=== PATIENT | male | born 1945 | race Caucasian/White ===

== ENCOUNTER 2017-02-07 22:47 | Emergency (ER) | payer MEDICARE, OTHER ==
[~2017-02-07 22:47] MED LIST: AMLO5TAB22 PO; ASPI81TA82 PO; CYCL-36 PO; DICL50 PO; LOSA100T PO; METO25 PO; OXYC15TA PO; PRED10PA PO
[2017-02-07 22:49] VITALS: BP 193/98; PULSE 82; RESP 16; TEMP 98; O2SAT 99
[2017-02-08] MEDS ORDERED: DIAZEPAM 5 MG TAB PO ONE (01:30)
[2017-02-08] MEDS ORDERED: KETOROLAC TROMETHAMINE 60 MG/2 ML (IM) VIAL IM ONE (01:30)
--- NOTE | 2017-02-08 02:10 | PD ---
HPI Chief Complaint: Pain: Acute or Chronic Time Seen by Provider: 00:24 Travel History International Travel<30 days: No Contact w/Intl Traveler<30days: No Traveled to known affect area: No History of Present Illness HPI Patient has Parkinson's disease and a resting tremor which is stronger in his right arm and left arm. He's had no change in his medications. Patient says that his neck is been hurting for last few days and the arm tremor began after neck pain. Patient denies trauma. The pain in the neck is a dull aching pain does not radiate. The arm is just an increased tremor. He took Aleve did not help the pain. In the ER his pain and tremor continues > For this his pain and resting tremor he did not see another doctor for this complaint. PFSH Past Medical History Hx Anticoagulant Therapy: Yes Arthritis: Yes Heart Rhythm Problems: No Cardiac Catheterization: No Cardiovascular Problems: Yes (htn) High Cholesterol: No Congestive Heart Failure: No Diabetes: No Diminished Hearing: Yes (HEARING AIDS) Gastrointestinal Disorders: Yes GERD: Yes Hepatitis: No Hiatal Hernia: Yes Hypertension: Yes Medical other: Yes (NOSE BLEEDS) Musculoskeletal: Yes Immunizations Current: No Thyroid Disease: No PNEUMOCCOCAL Vaccine (Year): 1 ?: Not Past Surgical History Abdominal Surgery: Yes AICD: No Appendectomy: Yes Coronary Artery Bypass Graft: No Joint Replacement: Yes (LEFT KNEE) Pacemaker: No Other Surgery: Yes (LT KNEE REPLACEMENT, DEVIATED SEPTUM) Social History Alcohol Use: No Tobacco Use: No Substance Use: No Allergies-Medications (Allergen,Severity, Reaction): Coded Allergies: codeine (Unverified Allergy, Severe, HALLUCINATIONS, 02/08/17) zolpidem (Unverified Adverse Reaction, Mild, sleep walking, 02/08/17) Reported Meds & Prescriptions Reported Meds & Active Scripts Active Cozaar (Losartan Potassium) 50 Mg Tab 50 Mg PO DAILY Reported Aspir-81 (Aspirin) 81 Mg Tabdr 81 Mg PO DAILY Carbidopa-Levodopa 25-100 Mg Tab 2 Tab PO Q4HR Physical Exam Narrative GENERAL: resting right arm tremor noticeable from walking in the room non toxic in no distress SKIN: Warm and dry. HEAD: Atraumatic. Normocephalic. EYES: Pupils equal and round. No scleral icterus. No injection or drainage. ENT: No nasal bleeding or discharge. Mucous membranes pink and moist. NECK: Trachea midline NECK posterior trapezius muscle to scalenes area has pain on palpation of his muscles CARDIOVASCULAR: Regular rate and rhythm. RESPIRATORY: No accessory muscle use. Clear to auscultation. Breath sounds equal bilaterally. GASTROINTESTINAL: Abdomen soft, non-tender, nondistended. Hepatic and splenic margins not palpable. MUSCULOSKELETAL: Extremities right arm has tremor > than Left ...without clubbing, cyanosis, or edema. No obvious deformities. NEUROLOGICAL: Awake and alert. No obvious cranial nerve deficits. Motor TREMOR R>L arm . Five out of 5 muscle strength in the arms and legs. Normal speech. PSYCHIATRIC: Appropriate mood and affect; insight and judgment normal. Data Data Last Documented VS Vital Signs Date Time Temp Pulse Resp B/P (MAP) Pulse Ox O2 Delivery O2 Flow Rate FiO2 02/08/17 02:29 02/08/17 02:29 72 17 96 Room Air 02/07/17 22:49 98.0 Orders Orders Diazepam (Valium) (02/08/17 01:30) Ketorolac Inj (Toradol Inj) (02/08/17 01:30) Ed Discharge Order (02/08/17 02:16) Ed Discharge Order (02/08/17 02:16) [facility] Medical Decision Making Medical Screen Exam Complete: Yes Emergency Medical Condition: Yes Differential Diagnosis Muscle spasms pinching his nerves of his neck causing increased of his resting tremor of Parkinson's. Versus worsening of his central dopaminergic problem of Parkinson's Narrative Course Valium and IM Toradol patient feels much better is ready for discharge instructed to follow-up in the morning with his neurologist and his primary care doctor Diagnosis Primary Impression: Muscle spasms of neck Condition: Sergio Stern MD Feb 08, 2017 02:10
[2017-02-08] MEDS ORDERED: DIAZ5 PO (02:16)
[2017-02-08 02:29] VITALS: BP 169/72; PULSE 72; RESP 17; O2SAT 96
[2017-02-08] MEDS ORDERED: CARB25TA9 PO (10:03)
[2017-02-08] MEDS ORDERED: LOSA100T PO (10:03)
[2017-02-08] MEDS ORDERED: ASPI81TA81 PO (10:03)
[2017-02-09] MEDS ORDERED: COZA50TA PO (13:23)
== END 2017-02-08 02:30 | disposition home or self-care (01) ==
LOC: NEPC 22:47
DX: M62.838 Other muscle spasm (principal); R25.1 Tremor, unspecified; I10 Essential (primary) hypertension; Z79.01 Long term (current) use of anticoagulants
CPT/HCPCS: 96372; 99284; J1885

== ENCOUNTER 2017-02-08 09:47 | Observation (INO) | payer OTHER ==
[2017-02-08] VITALS (11 sets, daily range): BP systolic 133–177; BP diastolic 72–96; PULSE 72–97; RESP 16–18; TEMP 97.5–98.2; O2SAT 96–100
[~2017-02-08] VITALS: Ht 193 cm; Wt 98.0 kg
[~2017-02-08 09:47] MED LIST changes: +DIAZ5 PO
[2017-02-08] MEDS ORDERED: CARB25TA9 PO (10:03)
[2017-02-08] MEDS ORDERED: LOSA100T PO (10:03)
[2017-02-08] MEDS ORDERED: ASPI81TA81 PO (10:03)
--- NOTE | 2017-02-08 10:12 | PD ---
HPI Chief Complaint: Neuro Symptoms/ Deficits Time Seen by Provider: 09:53 Travel History International Travel<30 days: No Contact w/Intl Traveler<30days: No Traveled to known affect area: No History of Present Illness HPI 72-year-old male was brought in by his for altered mental status. Patient was seen in emergency room last night for neck pain. Patient was given IM injection Toradol and Valium 5 mg by mouth. Patient was discharged earlier this morning. Patient went to breakfast with his . Patient was sitting down at a table. Patient's states that patient's eyes rolled back and patient became unresponsive for about 10 minutes. Patient seemed to be more confused when he woke up. Patient complains of headache since this morning. Patient states that headache aching headache on the right side of the head. Patient denies any visual change. Patient denies any neck pain now. Patient denies any chest pain or shortness of breath. Patient denies abdominal pain. Patient denies any focal weakness or numbness of extremity. Patient denies any history of TIA or CVA. Patient denies any history of seizure. Patient has history of hypertension and Parkinson disease. Patient's on losartan and carbidopa/levodopa. Patient states that he take aspirin daily. PFSH Past Medical History Hx Anticoagulant Therapy: Yes Arthritis: Yes Heart Rhythm Problems: No Cardiac Catheterization: No Cardiovascular Problems: Yes (HTN) High Cholesterol: No Congestive Heart Failure: No Diabetes: No Diminished Hearing: Yes (HEARING AIDS) Gastrointestinal Disorders: Yes GERD: Yes Hepatitis: No Hiatal Hernia: Yes Hypertension: Yes Medical other: Yes (NOSE BLEEDS) Musculoskeletal: Yes Parkinson's Disease: Yes Immunizations Current: No Thyroid Disease: No PNEUMOCCOCAL Vaccine (Year): 1 Past Surgical History Abdominal Surgery: Yes AICD: No Appendectomy: Yes Coronary Artery Bypass Graft: No Joint Replacement: Yes (LEFT KNEE) Pacemaker: No Other Surgery: Yes (LT KNEE REPLACEMENT, DEVIATED SEPTUM) Social History Alcohol Use: No Tobacco Use: No Substance Use: No Allergies-Medications (Allergen,Severity, Reaction): Coded Allergies: codeine (Unverified Allergy, Severe, HALLUCINATIONS, 02/08/17) zolpidem (Unverified Adverse Reaction, Mild, sleep walking, 02/08/17) Reported Meds & Prescriptions Reported Meds & Active Scripts Active Reported Losartan (Losartan Potassium) 100 Mg Tab 100 Mg PO DAILY Aspir-81 (Aspirin) 81 Mg Tabdr 81 Mg PO DAILY Carbidopa-Levodopa 25-100 Mg Tab 2 Tab PO Q4HR Review of Systems General / Constitutional: No: Fever Eyes: No: Visual changes HENT: Positive: Headaches Cardiovascular: No: Chest Pain or Discomfort Respiratory: No: Shortness of Breath Gastrointestinal: No: Abdominal Pain Genitourinary: No: Dysuria Musculoskeletal: No: Pain Skin: No Rash Neurologic: No: Weakness Psychiatric: No: Depression Endocrine: No: Polydipsia Hematologic/Lymphatic: No: Easy Bruising Physical Exam Narrative GENERAL: Well-nourished, well-developed patient. SKIN: Focused skin assessment warm/dry. HEAD: Normocephalic. EYES: No scleral icterus. No injection or drainage. Pupils 2.5 mm equal reactive. NECK: Supple, trachea midline. No JVD or lymphadenopathy. No meningismus CARDIOVASCULAR: Regular rate and rhythm without murmurs, gallops, or rubs. RESPIRATORY: Breath sounds equal bilaterally. No accessory muscle use. GASTROINTESTINAL: Abdomen soft, non-tender, nondistended. MUSCULOSKELETAL: No cyanosis, or edema. BACK: Nontender without obvious deformity. No CVA tenderness. Neurologic exam: Patient's lethargic however answer questions appropriately. Patient moves all extremity well. No obvious focal neurological deficit. Data Data Last Documented VS Vital Signs Date Time Temp Pulse Resp B/P (MAP) Pulse Ox O2 Delivery O2 Flow Rate FiO2 02/08/17 13:38 72 18 166/84 (111) 100 Room Air 02/08/17 10:03 97.8 Orders Orders Electrocardiogram (02/08/17 10:04) Complete Blood Count With Diff (02/08/17 10:04) Comprehensive Metabolic Panel (02/08/17 10:04) Creatine Kinase (Cpk) (02/08/17 10:04) Troponin I (02/08/17 10:04) Prothrombin Time / Inr (Pt) (02/08/17 10:04) Act Partial Throm Time (Ptt) (02/08/17 10:04) Urinalysis - C+S If Indicated (02/08/17 10:04) Thyroid Stimulating Hormone (02/08/17 10:04) Chest, Single Ap (02/08/17 10:04) Ct Brain W/O Iv Contrast(Rout) (02/08/17 10:04) Iv Access Insert/Monitor (02/08/17 10:04) Ecg Monitoring (02/08/17 10:04) Oximetry (02/08/17 10:04) Ct Cerv Spine W/O Contrast (02/08/17 10:06) Mri Brain W/O Contrast (02/08/17 14:03) Mra Brain W/O Contrast (Cow) (02/08/17 14:03) Mra Carotids W Contrast (02/08/17 14:03) Labs Laboratory Tests Test 02/08/17 10:09 White Blood Count 9.7 TH/MM3 Red Blood Count 4.28 MIL/MM3 Hemoglobin 13.3 GM/DL Hematocrit 40.1 % Mean Corpuscular Volume 93.9 FL Mean Corpuscular Hemoglobin 31.1 PG Mean Corpuscular Hemoglobin Concent 33.1 % Red Cell Distribution Width 13.6 % Platelet Count 174 TH/MM3 Mean Platelet Volume 8.9 FL Neutrophils (%) (Auto) 76.6 % Lymphocytes (%) (Auto) 13.2 % Monocytes (%) (Auto) 8.6 % Eosinophils (%) (Auto) 1.1 % Basophils (%) (Auto) 0.5 % Neutrophils # (Auto) 7.4 TH/MM3 Lymphocytes # (Auto) 1.3 TH/MM3 Monocytes # (Auto) 0.8 TH/MM3 Eosinophils # (Auto) 0.1 TH/MM3 Basophils # (Auto) 0.1 TH/MM3 CBC Comment DIFF FINAL Differential Comment Prothrombin Time 10.3 SEC Prothromb Time International Ratio 1.0 RATIO Activated Partial Thromboplast Time 22.9 SEC Blood Urea Nitrogen 34 MG/DL Creatinine 1.27 MG/DL Random Glucose 119 MG/DL Total Protein 7.5 GM/DL Albumin 3.9 GM/DL Calcium Level 9.1 MG/DL Alkaline Phosphatase 97 U/L Aspartate Amino Transf (AST/SGOT) 15 U/L Alanine Aminotransferase (ALT/SGPT) 9 U/L Total Bilirubin 0.6 MG/DL Sodium Level 136 MEQ/L Potassium Level 3.8 MEQ/L Chloride Level 103 MEQ/L Carbon Dioxide Level 26.1 MEQ/L Anion Gap 7 MEQ/L Estimat Glomerular Filtration Rate 56 ML/MIN Total Creatine Kinase 70 U/L Troponin I LESS THAN 0.02 NG/ML Thyroid Stimulating Hormone 3rd Gen 5.320 uIU/ML MDM Medical Decision Making Medical Screen Exam Complete: Yes Emergency Medical Condition: Yes Interpretation(s) Last Impressions Cervical Spine CT 02/08/17 1006 Signed Impressions: Service Date/Time: Wednesday, February 08, 2017 10:38 - CONCLUSION: 1. No fracture or dislocation. 2. Diffuse severe degenerative changes as detailed above. 3. Carotid artery atherosclerotic calcifications. Orlin Crow Jr., MD Head CT 02/08/17 1004 Signed Impressions: Service Date/Time: Wednesday, February 08, 2017 10:38 - CONCLUSION: Age-indeterminate bilateral lacunar infarcts. Mitchell Bryson MD Chest X-Ray 02/08/17 1004 Signed Impressions: Service Date/Time: Wednesday, February 08, 2017 10:22 - CONCLUSION: No acute disease. Clint Rodriguez MD FACR 1356 PM. CBC within normal limit. CMP with BUN of 34. Cardiac enzymes are normal. TSH 5.32. Differential Diagnosis Differential diagnosis including side effect to medication, TIA, CVA, seizure, electrolyte abnormality, dehydration, arrhythmia. Narrative Course 72-year-old male with altered mental status. Patient was seen in emergency room earlier this morning was given Valium and Toradol IM injection. Normal saline solution 100 cc an hour. O2 2 L cannula. Head of bed 30. Diagnosis Primary Impression: Syncope Qualified Codes: R55 - Syncope and collapse Connor Guy MD Feb 08, 2017 10:12
[2017-02-08 10:24] LABS: AUTOMATED NEUTROPHIL # 7.4 TH/MM3 (1.8-7.7); BASOPHIL # 0.1 TH/MM3 (0-0.2); BASOPHIL % 0.5 % (0.0-2.0); EOSINOPHIL # 0.1 TH/MM3 (0-0.4); EOSINOPHIL % 1.1 % (0.0-4.0); HEMATOCRIT 40.1 % (39.0-51.0); HEMO FLAGS DIFF FINAL; LYMPH % 13.2 % (9.0-44.0); LYMPHOCYTE # 1.3 TH/MM3 (1.0-4.8); MEAN CELL VOLUME 93.9 FL (80.0-100.0); MEAN CORPUSCULAR HEMOGLOBIN 31.1 PG (27.0-34.0); MEAN CORPUSCULAR HGB CONC 33.1 % (32.0-36.0); MONO % 8.6 % (0.0-8.0); NEUT % 76.6 % (16.0-70.0); PLATELET COUNT 174 TH/MM3 (150-450); RED BLOOD COUNT 4.28 MIL/MM3 (4.50-5.90); RED CELL DISTRIBUTION WIDTH 13.6 % (11.6-17.2); WHITE BLOOD COUNT 9.7 TH/MM3 (4.0-11.0)
--- NOTE | 2017-02-08 10:35 | RADRPT ---
EXAM DATE/TIME: 02/08/2017 10:22 [facility] COMPARISON: CHEST SINGLE AP, December 11, 2014, 14:22. INDICATIONS : Patient found unresponsive this morning. Now confusion with shortness of breath. MEDICAL HISTORY : Parkinson SURGICAL HISTORY : None. ENCOUNTER: Initial ACUITY: 1 day PAIN SCORE: 0/10 LOCATION: Bilateral chest FINDINGS: A single view of the chest demonstrates the lungs to be symmetrically aerated without evidence of mas s, infiltrate or effusion. The cardiomediastinal contours are unremarkable. Osseous structures are intact. CONCLUSION: No acute disease. Clint Rodriguez MD FACR on February 08, 2017 at 10:32 Board Certified Radiologist. This report was verified electronically.
[2017-02-08 10:39] LABS: APTT (PATIENT) 22.9 SEC (24.3-30.1); PROTHROMBIN TIME - PATIENT 10.3 SEC (9.8-11.6)
[2017-02-08 10:44] LABS: ANION GAP 7 MEQ/L (5-15); AST (GOT) 15 U/L (15-37); BICARBONATE 26.1 MEQ/L (21.0-32.0); BLOOD UREA NITROGEN 34 MG/DL (7-18); CHLORIDE 103 MEQ/L (98-107); GLOMERULAR FILTRATION RATE 56 ML/MIN (>89); POTASSIUM 3.8 MEQ/L (3.5-5.1); SODIUM (NA) 136 MEQ/L (136-145)
[2017-02-08 10:54] LABS: ALKALINE PHOSPHATASE 97 U/L (45-117); ALT (GPT) 9 U/L (12-78); TOTAL BILIRUBIN ADULT 0.6 MG/DL (0.2-1.0)
[2017-02-08 10:56] LABS: CREATINE KINASE 70 U/L (39-308)
--- NOTE | 2017-02-08 11:09 | RADRPT ---
EXAM DATE/TIME: 02/08/2017 10:38 [facility] COMPARISON: No previous studies available for comparison. INDICATIONS : Syncope. Altered mental status. RADIATION DOSE: 69.24 CTDIvol (mGy) MEDICAL HISTORY : Parkinson's. Cardiovascular disease Hypertension. SURGICAL HISTORY : Appendectomy. ENCOUNTER: Initial ACUITY: 1 day PAIN SCALE: 0/10 LOCATION: cranial TECHNIQUE: Multiple contiguous axial images were obtained of the head. Using automated exposure control and adj ustment of the mA and/or kV according to patient size, radiation dose was kept as low as reasonably a chievable to obtain optimal diagnostic quality images. DICOM format image data is available electro nically for review and comparison. FINDINGS: There are small areas of hypodensity involving the left internal capsule and the right thalamus which are likely lacunar infarcts of undetermined age. There is no evidence of intracranial mass or hemorr ruth. Ventricles are symmetric and normal. No abnormal extra-axial fluid accumulation is identified. The extracranial structures are benign and intact. CONCLUSION: Age-indeterminate bilateral lacunar infarcts. Mitchell Bryson MD on February 08, 2017 at 11:00 Board Certified Radiologist. This report was verified electronically.
--- NOTE | 2017-02-08 11:15 | RADRPT ---
EXAM DATE/TIME: 02/08/2017 10:38 [facility] COMPARISON: No previous studies available for comparison. INDICATIONS : Syncope, fall. Neck pain. RADIATION DOSE: 36.56 CTDIvol (mGy) MEDICAL HISTORY : Parkinson's. Cardiovascular disease Hypertension. SURGICAL HISTORY : None. ENCOUNTER: Initial ACUITY: 1 day PAIN SCALE: 0/10 LOCATION: neck TECHNIQUE: Volumetric scanning of the cervical spine was performed. Multiplanar reconstructions in the sagittal, coronal and oblique axial planes were performed. Using automated exposure control and adjustment o f the mA and/or kV according to patient size, radiation dose was kept as low as reasonably achievable to obtain optimal diagnostic quality images. DICOM format image data is available electronically f or review and comparison. FINDINGS: VERTEBRAE: Normal vertebral body height. ALIGNMENT: No evidence of subluxation. Calcified plaque involving the carotid arteries. C2-C3: There is a mild broad-based bulge. No abutment of the cord or central canal stenosis. Prominent bony uncovertebral hypertrophy on the left generating severe left neural foraminal narrowing and mild narr owing of the left lateral recess. Right neural foramen and lateral recess are patent. C3-C4: There is a broad-based disc osteophyte complex without abutment of the cord or central canal stenosis . Prominent bony uncovertebral hypertrophy more pronounced on the right with moderate right and mild left neural foraminal narrowing. Mild narrowing of the lateral recesses bilaterally. C4-C5: There is a central disc protrusion abuts the cord just to the right of midline. Prominent bony uncove rtebral hypertrophy on the right generates effacement of the right lateral recess and severe narrowin g of the right neural foramen. Left neural foramen and lateral recess are patent. C5-C6: There is a broad-based disc osteophyte complex abuts the ventral portion of the cord. Prominent bony uncovertebral hypertrophy bilaterally. Severe narrowing of the neural foramina bilaterally. Narrowing of lateral recesses bilaterally. C6-C7: A broad-based disc osteophyte complex abuts the cord. Prominent bony uncovertebral hypertrophy. Sever e narrowing the left neural foramen. Right is patent. Narrowing of the left lateral recess and to a l victor hugo irregularity is. C7-T1: The bony spinal canal is normal in size. No evidence of disc bulge or herniation. The neural forami na are bilaterally patent. CONCLUSION: 1. No fracture or dislocation. 2. Diffuse severe degenerative changes as detailed above. 3. Carotid artery atherosclerotic calcifications. Orlin Crow Jr., MD on February 08, 2017 at 11:04 Board Certified Radiologist. This report was verified electronically.
--- NOTE | 2017-02-08 14:52 | HHI.HP ---
[facility] Service [facility] Primary Care Physician Bandar Jolly MD Admission Diagnosis Diagnoses: Chief Complaint: Syncope Travel History International Travel<30 Days: No Contact w/Intl Traveler <30 Da: No Traveled to Known Affected Are: No History of Present Illness 72-year-old male was brought in by his for altered mental status. Patient was seen in emergency room last night for neck pain. Patient was given IM injection Toradol and Valium 5 mg by mouth. Patient was discharged earlier this morning. Patient went to breakfast with his . Patient was sitting down at a table. Patient's states that patient's eyes rolled back and patient became unresponsive for about 10 minutes. Patient seemed to be more confused when he woke up. Patient complains of headache since this morning. Patient states that headache aching headache on the right side of the head. Patient denies any visual change. Patient denies any neck pain now. Patient denies any chest pain or shortness of breath. Patient denies abdominal pain. Patient denies any focal weakness or numbness of extremity. Patient denies any history of TIA or CVA. Patient denies any history of seizure. Patient has history of hypertension and Parkinson disease. Patient's on losartan and carbidopa/levodopa. Patient states that he take aspirin daily. Seen in ER in the presence of lot technician performing his EEG. Neurology specialist Doctor Bladimir Gan for management. Review of Systems Constitutional: DENIES: Fever, Chills, Change in appetite Endocrine: DENIES: Heat/cold intolerance Eyes: DENIES: Blurred vision, Eye pain Except as stated in HPI: all other systems reviewed are Neg Past Family Social History Past Medical History OA Hypertension GERD Hiatal Hernia Parkinson's disease Past Surgical History Appendectomy Left knee replacement Reported Medications Reported Meds & Active Scripts Active Reported Losartan (Losartan Potassium) 100 Mg Tab 100 Mg PO DAILY Aspir-81 (Aspirin) 81 Mg Tabdr 81 Mg PO DAILY Carbidopa-Levodopa 25-100 Mg Tab 2 Tab PO Q4HR Allergies: Coded Allergies: codeine (Unverified Allergy, Severe, HALLUCINATIONS, 02/08/17) zolpidem (Unverified Adverse Reaction, Mild, sleep walking, 02/08/17) Active Ordered Medications Current Medications Medications (Trade) Dose Ordered Sig/Lynnette Route Start Time Stop Time Status Last Admin Sodium Chloride 1,000 ml @ 100 mls/hr Q10H IV 02/08/17 15:29 02/08/17 15:50 (NS Flush) 2 ml UNSCH PRN IV FLUSH 02/08/17 15:30 (NS Flush) 2 ml BID IV FLUSH 02/08/17 21:00 (Tylenol) 650 mg Q4H PRN PO 02/08/17 15:30 (Zofran Inj) 4 mg Q6H PRN IVP 02/08/17 15:30 (Lovenox Inj) 40 mg Q24H SQ 02/08/17 17:00 02/08/17 16:47 (Narcan Inj) 0.4 mg UNSCH PRN IV PUSH 02/08/17 15:30 (Rand-Colace) 1 tab BID PO 02/08/17 21:00 (Milk Of Magnesia Liq) 30 ml Q12H PRN PO 02/08/17 15:30 (Senokot) 17.2 mg Q12H PRN PO 02/08/17 15:30 (Dulcolax Supp) 10 mg DAILY PRN RECTAL 02/08/17 15:30 (Lactulose Liq) 30 ml DAILY PRN PO 02/08/17 15:30 Family History Father with DM Social History Lives with his , Denies any toxic habit Physical Exam Vital Signs Vital Signs Date Time Temp Pulse Resp B/P (MAP) Pulse Ox O2 Delivery O2 Flow Rate FiO2 02/08/17 13:38 72 18 166/84 (111) 100 Room Air 02/08/17 10:06 77 18 99 Room Air 02/08/17 10:03 97.8 74 18 170/96 (120) 99 Room Air 02/08/17 10:03 75 18 97 Room Air 02/08/17 09:56 97.8 79 18 170/96 (120) 97 02/08/17 09:48 97.6 78 16 172/92 (118) 97 Room Air Physical Exam GENERAL: Well-nourished, well-developed patient. SKIN: Focused skin assessment warm/dry. HEAD: Normocephalic. EYES: No scleral icterus. No injection or drainage. Pupils 2.5 mm equal reactive. NECK: Supple, trachea midline. No JVD or lymphadenopathy. No meningismus CARDIOVASCULAR: Regular rate and rhythm without murmurs, gallops, or rubs. RESPIRATORY: Breath sounds equal bilaterally. No accessory muscle use. GASTROINTESTINAL: Abdomen soft, non-tender, nondistended. MUSCULOSKELETAL: No cyanosis, or edema. BACK: Nontender without obvious deformity. No CVA tenderness. Neurologic exam: Patient's lethargic however answer questions appropriately. weakness on the right arm. Laboratory Laboratory Tests Test 02/08/17 10:09 White Blood Count 9.7 Red Blood Count 4.28 Hemoglobin 13.3 Hematocrit 40.1 Mean Corpuscular Volume 93.9 Mean Corpuscular Hemoglobin 31.1 Mean Corpuscular Hemoglobin Concent 33.1 Red Cell Distribution Width 13.6 Platelet Count 174 Mean Platelet Volume 8.9 Neutrophils (%) (Auto) 76.6 Lymphocytes (%) (Auto) 13.2 Monocytes (%) (Auto) 8.6 Eosinophils (%) (Auto) 1.1 Basophils (%) (Auto) 0.5 Neutrophils # (Auto) 7.4 Lymphocytes # (Auto) 1.3 Monocytes # (Auto) 0.8 Eosinophils # (Auto) 0.1 Basophils # (Auto) 0.1 CBC Comment DIFF FINAL Differential Comment Prothrombin Time 10.3 Prothromb Time International Ratio 1.0 Activated Partial Thromboplast Time 22.9 Blood Urea Nitrogen 34 Creatinine 1.27 Random Glucose 119 Total Protein 7.5 Albumin 3.9 Calcium Level 9.1 Alkaline Phosphatase 97 Aspartate Amino Transf (AST/SGOT) 15 Alanine Aminotransferase (ALT/SGPT) 9 Total Bilirubin 0.6 Sodium Level 136 Potassium Level 3.8 Chloride Level 103 Carbon Dioxide Level 26.1 Anion Gap 7 Estimat Glomerular Filtration Rate 56 Total Creatine Kinase 70 Troponin I LESS THAN 0.02 Thyroid Stimulating Hormone 3rd Gen 5.320 Result Diagram: 02/08/17 1009 02/08/17 1009 Imaging Last Impressions Cervical Spine CT 02/08/17 1006 Signed Impressions: Service Date/Time: Wednesday, February 08, 2017 10:38 - CONCLUSION: 1. No fracture or dislocation. 2. Diffuse severe degenerative changes as detailed above. 3. Carotid artery atherosclerotic calcifications. Orlin Crow Jr., MD Head CT 02/08/17 1004 Signed Impressions: Service Date/Time: Wednesday, February 08, 2017 10:38 - CONCLUSION: Age-indeterminate bilateral lacunar infarcts. Mitchell Bryson MD Chest X-Ray 02/08/17 1004 Signed Impressions: Service Date/Time: Wednesday, February 08, 2017 10:22 - CONCLUSION: No acute disease. Clint Rodriguez MD FACR Caprini VTE Risk Assessment Caprini VTE Risk Assessment: Mod/High Risk (score >= 2) Caprini Risk Assessment Model Point Value = 1 Point Value = 2 Point Value = 3 Point Value = 5 Age 41-60 Minor surgery BMI > 25 kg/m2 Swollen legs Varicose veins or History of unexplained or recurrent spontaneous Oral contraceptives or hormone replacement Sepsis (< 1 month) Serious lung disease, including pneumonia (< 1 month) Abnormal pulmonary function Acute myocardial infarction Congestive heart failure (< 1 month) History of inflammatory bowel disease Medical patient at bed rest Age 61-74 Arthroscopic surgery Major open surgery (> 45 min) Laparoscopic surgery (> 45 min) Malignancy Confined to bed (> 72 hours) Immobilizing plaster cast Central venous access Age >= 75 History of VTE Family history of VTE Factor V Leiden Prothrombin [id number] Lupus anticoagulant Anticardiolipin antibodies Elevated serum homocysteine Heparin-induced thrombocytopenia Other congenital or acquired thrombophilia Stroke (< 1 month) Elective arthroplasty Hip, pelvis, or leg fracture Acute spinal cord injury (< 1 month) Prophylaxis Regimen Total Risk Factor Score Risk Level Prophylaxis Regimen 0-1 Low Early ambulation 2 Moderate Order ONE of the following: *Sequential Compression Device (SCD) *Heparin 5000 units SQ BID 3-4 Higher Order ONE of the following medications: *Heparin 5000 units SQ TID *Enoxaparin/Lovenox 40 mg SQ daily (WT < 150 kg, CrCl > 30 mL/min) *Enoxaparin/Lovenox 30 mg SQ daily (WT < 150 kg, CrCl > 10-29 mL/min) *Enoxaparin/Lovenox 30 mg SQ BID (WT < 150 kg, CrCl > 30 mL/min) AND/OR *Sequential Compression Device (SCD) 5 or more Highest Order ONE of the following medications: *Heparin 5000 units SQ TID (Preferred with Epidurals) *Enoxaparin/Lovenox 40 mg SQ daily (WT < 150 kg, CrCl > 30 mL/min) *Enoxaparin/Lovenox 30 mg SQ daily (WT < 150 kg, CrCl > 10-29 mL/min) *Enoxaparin/Lovenox 30 mg SQ BID (WT < 150 kg, CrCl > 30 mL/min) AND *Sequential Compression Device (SCD) Assessment and Plan Assessment and Plan 1. Syncopal Episode the patient was discussed with ER specialist the patient was seen in Emergency room yesterday and given Valium and Toradol IM Injection after this the patient developed the episode that brought him to ER, he is been discussed with Neurology specialist doctor Bladimir Gan asked for MRI, MRA, EEG and follow hospitalized, also will continue management, for possible TIA/CVA continue Aspirin 325 mg, continue Cardiac monitoring, Echocardiogram, Cardiac Enzymes, complete laboratory, consult PT/OT/ST 2. OA by history 3. Hypertension continue off antihypertensives and follow 4. GERD on Famotidine 5. Parkinson's Disease to continue Home medicines. 6. Subclinical Hypothyroidism asked for Free T4 DVT prophylaxis with Lovenox. Code Status Full code Discussed Condition With Connor Guy MD, Guillermo MD Feb 08, 2017 14:52
[2017-02-08] MEDS ORDERED: ACETAMINOPHEN 325 MG TAB PO PRN (15:30)
[2017-02-08] MEDS ORDERED: SENNOSIDES 8.6 MG TAB PO PRN (15:30)
[2017-02-08] MEDS ORDERED: MAGNESIUM HYDROXIDE SUSP 30 ML CUP PO PRN (15:30)
[2017-02-08] MEDS ORDERED: ONDANSETRON HCL 4 MG/2 ML VIAL IVP PRN (15:30)
[2017-02-08] MEDS ORDERED: NALOXONE HCL 0.4 MG/ML AMP IV PUSH PRN (15:30)
[2017-02-08] MEDS ORDERED: SODIUM CHLORIDE 0.9% FLUSH 10 ML FLUSH IV FLUSH PRN (15:30)
[2017-02-08] MEDS ORDERED: BISACODYL 10 MG SUPP RECTAL PRN (15:30)
[2017-02-08] MEDS ORDERED: LACTULOSE SYRUP 20 GM/30 ML CUP PO PRN (15:30)
--- NOTE | 2017-02-08 15:46 | EKG ---
Date Performed: 02/08/2017 Time Performed: 10:00:25 PTAGE: 72 years EKG: Sinus rhythm WITH FREQUENT VENTRICULAR PREMATURE COMPLEXES ABNORMAL RHYTHM ECG Compared to PREVIOUS TRACING , patient is now having frequent PVCs. PREVIOUS TRACIN12/11/2014 20.0 1 DOCTOR: Irene Packer Interpretating Date/Time 02/08/2017 15:44:32
[2017-02-08] MEDS: SODIUM CHLOR 0.9% 1000 ML INJ 1,000 ML IV SCH (15:50)
[2017-02-08] MEDS: ENOXAPARIN SODIUM 40 MG/0.4 ML SYRINGE SQ SCH (16:47)
[2017-02-08 16:50] LABS: BLOOD, URINE NEG (NEG); COMMENT (UR) CULT NOT INDICATED; CULTURE IF INDICATED CULT NOT INDICATED; GLUCOSE,URINE NEG (NEG); HYALINE CAST, URINE 6 /lpf (RARE); KETONE, URINE TRACE mg/dL (NEG); MUCUS URINE FEW /lpf (OCC); NITRITE,URINE NEG (NEG); URINE COLOR YELLOW (YELLW/STRAW)
--- NOTE | 2017-02-08 17:40 | PD.CONS ---
History of Present Illness Service Neurology Consult Requested By medical Reason for Consult pd, weak Primary Care Physician Bandar Jolly MD History of Present Illness 72-year-old m admitted for neck pain, followed by syncopal type episode at home. came to er for neck pain, given toradol for pain, also given valium. improved. ct cspine no acute fx/lesion. came back after he got weak and ?eyes rolled back confused after. admits to feeling lightheaded at times when going from sitting to standing position. feels fine at present. no hx of tia/stroke/sz. dx'd with p.d. 9 months ago. takes sinemet 2 tabs qid. has a local neurologist. Review of Systems as above and admit hp Past Family Social History Past Medical History OA Hypertension GERD Hiatal Hernia Parkinson's disease Past Surgical History Appendectomy Left knee replacement Reported Medications Reported Meds & Active Scripts Active Reported Losartan (Losartan Potassium) 100 Mg Tab 100 Mg PO DAILY Aspir-81 (Aspirin) 81 Mg Tabdr 81 Mg PO DAILY Carbidopa-Levodopa 25-100 Mg Tab 2 Tab PO Q4HR Allergies: Coded Allergies: codeine (Unverified Allergy, Severe, HALLUCINATIONS, 02/08/17) zolpidem (Unverified Adverse Reaction, Mild, sleep walking, 02/08/17) Father with DM Social History Lives with his , no tob/illicit drug use Review of Systems All other ROS: ROS reviewed as documented in chart Past Family Social History Allergies: Coded Allergies: codeine (Unverified Allergy, Severe, HALLUCINATIONS, 02/08/17) zolpidem (Unverified Adverse Reaction, Mild, sleep walking, 02/08/17) Active Ordered Medications Current Medications Medications (Trade) Dose Ordered Sig/Lynnette Route Start Time Stop Time Status Last Admin Sodium Chloride 1,000 ml @ 100 mls/hr Q10H IV 02/08/17 15:29 02/08/17 15:50 (NS Flush) 2 ml UNSCH PRN IV FLUSH 02/08/17 15:30 (NS Flush) 2 ml BID IV FLUSH 02/08/17 21:00 (Tylenol) 650 mg Q4H PRN PO 02/08/17 15:30 (Zofran Inj) 4 mg Q6H PRN IVP 02/08/17 15:30 (Lovenox Inj) 40 mg Q24H SQ 02/08/17 17:00 02/08/17 16:47 (Narcan Inj) 0.4 mg UNSCH PRN IV PUSH 02/08/17 15:30 (Rand-Colace) 1 tab BID PO 02/08/17 21:00 (Milk Of Magnesia Liq) 30 ml Q12H PRN PO 02/08/17 15:30 (Senokot) 17.2 mg Q12H PRN PO 02/08/17 15:30 (Dulcolax Supp) 10 mg DAILY PRN RECTAL 02/08/17 15:30 (Lactulose Liq) 30 ml DAILY PRN PO 02/08/17 15:30 (Sinemet 25-100 Mg) 2 tab Q4HR PO 02/08/17 20:00 UNV Exam I&O / VS Vital Signs Date Time Temp Pulse Resp B/P (MAP) Pulse Ox O2 Delivery O2 Flow Rate FiO2 02/08/17 17:13 82 02/08/17 16:54 97.5 82 18 177/72 (107) 96 02/08/17 16:28 02/08/17 13:38 72 18 166/84 (111) 100 Room Air 02/08/17 10:06 77 18 99 Room Air 02/08/17 10:03 97.8 74 18 170/96 (120) 99 Room Air 02/08/17 10:03 75 18 97 Room Air 02/08/17 09:56 97.8 79 18 170/96 (120) 97 02/08/17 09:48 97.6 78 16 172/92 (118) 97 Room Air General: Alert and Oriented, No acute distress Eye: EOMI Respiratory: Non-labored respirations Cardiology: Normal rate Neurologic: Alert, Oriented, Normal sensory, CN II-XII intact, Gag reflex normal, Normal DTR's Psychiatric: Cooperative, Appropriate mood & affect, Normal judgement, Non- suicidal Exam Comments ox 3, pleasant, follows, no aphasia, eomi, face sym, facial hypomimia, mild dysphonic speech, neck mild rigidty, no confucianism tenderness, +rt ue resting tremor , mild ue rigidity, kirk to gravity, withdraws to tactile, msr 1+, no clonus, planterflexor Review/Management Diagnosis/Plan: (1) Syncope ICD Codes: R55 - Syncope and collapse Status: Acute Plan: ?med reaction vs vasovagal syncope. r/o vbi recs mri/mra brain eeg orthostatics p.t. consider echo/cardio eval- defer to medical continue current dose of sinemet (2) Parkinson disease ICD Codes: G20 - Parkinson's disease Status: Chronic (3) Hypertension ICD Codes: I10 - Hypertension Status: Acute Problem Qualifiers (1) Syncope: Qualified Codes: R55 - Syncope and collapse (2) Hypertension: Qualified Codes: I10 - Essential (primary) hypertension Bladimir Gan MD Feb 08, 2017 17:40
[2017-02-08 18:03] LABS: CREATINE KINASE 66 U/L (39-308)
--- NOTE | 2017-02-08 18:46 | RADRPT ---
EXAM DATE/TIME: 02/08/2017 18:01 [facility] COMPARISON: No previous studies available for comparison. INDICATIONS : Confusion. Cephalgia. MEDICAL HISTORY : Hypertension. Parkinson's. SURGICAL HISTORY : Appendectomy. Total knee replacement, left. ENCOUNTER: Initial ACUITY: 1 day PAIN SCORE: 5/10 LOCATION: cranial TECHNIQUE: Multiplanar, multisequence MRI of the brain was performed without contrast. FINDINGS: Probable remote lacunar infarct right basal ganglia. No acute infarct. No mass, hemorrhage or shift. No hydrocephalus. No abnormal extra-axial fluid. Globes intact. CONCLUSION: 1. Probable remote lacunar infarct right basal ganglia. No acute findings. Hector Mcfarland MD on February 08, 2017 at 18:41 Board Certified Radiologist. This report was verified electronically.
[2017-02-08] MEDS ORDERED: GADODIAMIDE PF 287 MG/ML 20 ML VIAL (for RAD MRI) IV PUSH ONE (19:05)
--- NOTE | 2017-02-08 19:11 | RADRPT ---
EXAM DATE/TIME: 02/08/2017 18:01 [facility] COMPARISON: No previous studies available for comparison. INDICATIONS : Confusion. Cephalgia. MEDICAL HISTORY : Hypertension. Parkinson's. SURGICAL HISTORY : Total knee replacement, left. Appendectomy. ENCOUNTER: Initial ACUITY: 1 day PAIN SCORE: 4/10 LOCATION: cranial Please note a normal MRA of the brain does not entirely exclude the possibility of a small aneurysm, nor the possibility of distal intracranial vessel disease. TECHNIQUE: 3D time of flight MRA was performed. Source images, multiplanar STS MIP, and 3D volume MIP reconstru ctions were reviewed. FINDINGS: There is excellent visualization of the major intracranial arteries out to the second-order branch ve ssels. There is no evidence for aneurysm, vessel truncation or stenosis, and no evidence for vascula r malformation. CONCLUSION: 1. Exam within normal limits for age. Hector Mcfarland MD on February 08, 2017 at 19:06 Board Certified Radiologist. This report was verified electronically.
--- NOTE | 2017-02-08 19:14 | RADRPT ---
EXAM DATE/TIME: 02/08/2017 18:01 [facility] COMPARISON: No previous studies available for comparison. INDICATIONS : Cephalgia. MEDICAL HISTORY : Hypertension. Parkinson's. SURGICAL HISTORY : Total knee replacement, left. Appendectomy. ENCOUNTER: Initial ACUITY: 1 day PAIN SCORE: 0/10 LOCATION: Parasp[place] TECHNIQUE: Multiplanar, multisequence MRI examination of the cervical spine was performed. FINDINGS: C2-C3: Mild left-sided foraminal stenosis. No canal stenosis. C3-C4: Mild bilateral foraminal stenosis. No canal stenosis. C4-C5: Osteophytic ridging posteriorly effacing the anterior thecal sac. Mild right foraminal stenosis. C5-C6: Posterior osteophytic ridging with disc osteophyte complex resulting in a moderate AP canal stenosis with mild cord compression and cord flattening. Mild bilateral foraminal stenosis. C6-C7: Posterior disc osteophyte complex effacing the thecal sac with mild cord impression. Mild left forami nal stenosis. C7-T1: The thecal sac has a normal configuration. There is no evidence of disc herniation or spinal canal s tenosis. The neural foramina are patent bilaterally. CONCLUSION: 1. At C5-6 there is posterior osteophytic ridging resulting in moderate canal stenosis and mild cord compression mild bilateral foraminal stenosis. 2. Less severe degenerative changes remainder of the cervical spine as above. Mild cord compression a t C6-7. 3. No acute fracture or spondylolisthesis. No cord signal abnormality. Hector Mcfarland MD on February 08, 2017 at 19:08 Board Certified Radiologist. This report was verified electronically.
--- NOTE | 2017-02-08 19:30 | RADRPT ---
EXAM DATE/TIME: 02/08/2017 18:01 [facility] COMPARISON: No previous studies available for comparison. INDICATIONS : Confusion, cephalgia. CONTRAST: 20 cc Omniscan (gadodiamide) IV MEDICAL HISTORY : Hypertension. Parkinson's. SURGICAL HISTORY : Appendectomy. Total knee replacement, left. ENCOUNTER: Initial ACUITY: 1 day PAIN SCORE: 0/10 LOCATION: neck Percent stenosis is calculated using the diameter of the stenotic region over the diameter of the nor mal distal internal carotid artery. TECHNIQUE: Bolus infused MRA of the extracranial circulation was performed using a neurovascular coil. Post pro cessing was performed including rotating subvolume maximum intensity projections of each carotid alejandra ry, rotating full volume maximum intensity projections of both carotid arteries, sagittal and coronal sliding thin slab reformations of each carotid artery, and left oblique sliding thin slab reformatio n through the aortic arch to include the origin of the arch branch vessels. FINDINGS: AORTIC ARCH: There is a three vessel origin of the great vessels from the aorta. No evidence of ostial narrowing. RIGHT CAROTID: The common carotid artery is intact. The carotid bulb has a normal configuration without ulceration or narrowing. The internal carotid artery lumen is smooth without stenosis. The external carotid ar louise is intact. LEFT CAROTID: The common carotid artery is intact. The carotid bulb has a normal configuration without ulceration or narrowing. The internal carotid artery lumen is smooth without stenosis. The external carotid ar louise is intact. VERTEBRALS: The vertebral arteries have a symmetric diameter. No stenotic lesions are seen. CONCLUSION: 1. Examination is within normal limits for age. Hector Mcfarland MD on February 08, 2017 at 19:26 Board Certified Radiologist. This report was verified electronically.
[2017-02-08] MEDS: SODIUM CHLORIDE 0.9% FLUSH 10 ML FLUSH IV FLUSH SCH (21:17)
[2017-02-08] MEDS: CARBIDOPA/LEVODOPA 25 MG/100 MG TAB PO SCH (21:17)
[2017-02-08] MEDS: DOCUSATE SODIUM 50 MG/SENNA 8.6 MG TAB PO SCH (21:17)
--- NOTE | 2017-02-08 22:07 | MG ---
cc: JESUS RODRIGUEZ MD Lab No: [id number] Date: 02/08/17 Age: 72 Sex: M Race: 1945 A 72-year-old, history of syncopal type episode, Parkinson disease 5-6 Hz posterior rhythm 20-50 microvolts. __temporal slowing suggestive of drowsy state. Limited driving with photic stimulation. Single lead EKG showing multiple premature contractions. INTERPRETATION Mild encephalopathy in drowsy state. Cardiac arrhythmia. Clinical correlation. MD FELICIA Fraser/ /9:37 PM /9:57 PM
[2017-02-08 23:57] LABS: FREE T4 1.27 NG/DL (0.76-1.46); HDL CHOLESTEROL 39.1 MG/DL (40.0-60.0); LDL CHOLESTEROL 52 MG/DL (0-99)
[2017-02-08 23:58] LABS: CREATINE KINASE 68 U/L (39-308)
[2017-02-09] VITALS (14 sets, daily range): BP systolic 121–180; BP diastolic 72–100; PULSE 70–88; RESP 16–22; TEMP 97.6–98.3; O2SAT 96–98
[2017-02-09] MEDS: CARBIDOPA/LEVODOPA 25 MG/100 MG TAB PO SCH ×6 (00:31→21:26)
[2017-02-09] MEDS: SODIUM CHLOR 0.9% 1000 ML INJ 1,000 ML IV SCH ×3 (01:18→21:29)
[2017-02-09 07:18] LABS: AUTOMATED NEUTROPHIL # 6.4 TH/MM3 (1.8-7.7); BASOPHIL # 0.1 TH/MM3 (0-0.2); BASOPHIL % 0.6 % (0.0-2.0); EOSINOPHIL # 0.1 TH/MM3 (0-0.4); HEMATOCRIT 38.3 % (39.0-51.0); HEMO FLAGS DIFF FINAL; LYMPH % 12.2 % (9.0-44.0); MEAN CELL VOLUME 93.9 FL (80.0-100.0); MEAN CORPUSCULAR HEMOGLOBIN 31.4 PG (27.0-34.0); MEAN CORPUSCULAR HGB CONC 33.4 % (32.0-36.0); MONO % 7.5 % (0.0-8.0); NEUT % 78.7 % (16.0-70.0); PLATELET COUNT 164 TH/MM3 (150-450); RED BLOOD COUNT 4.07 MIL/MM3 (4.50-5.90); RED CELL DISTRIBUTION WIDTH 13.5 % (11.6-17.2); WHITE BLOOD COUNT 8.1 TH/MM3 (4.0-11.0)
[2017-02-09 07:41] LABS: BICARBONATE 25.3 MEQ/L (21.0-32.0); POTASSIUM 4.1 MEQ/L (3.5-5.1)
[2017-02-09] MEDS: DOCUSATE SODIUM 50 MG/SENNA 8.6 MG TAB PO SCH ×2 (08:19→21:26)
[2017-02-09] MEDS: SODIUM CHLORIDE 0.9% FLUSH 10 ML FLUSH IV FLUSH SCH ×2 (08:22→21:00)
[2017-02-09] MEDS: LOSARTAN 50 MG TAB PO SCH (10:10)
--- NOTE | 2017-02-09 11:17 | HHI.PR ---
Review/Management Diagnosis/Plan: (1) Syncope ICD Codes: R55 - Syncope and collapse Status: Acute Plan: ?med reaction vs vasovagal syncope. r/o vbi recs mra head/neck- no abnormalities mri brain shows remote infarct in right basal ganglia eeg - mild encephalopathy in drowsy state. cardiac arrythmia orthostatics - no drop in BP when standing p.t. pt reports he is scheduled for ECHO today continue current dose of sinemet (2) Parkinson disease ICD Codes: G20 - Parkinson's disease Status: Chronic (3) Hypertension ICD Codes: I10 - Hypertension Status: Acute (Leah Matthew) Daily Summary d/w PA. agree with plan. will have nsx review his mri cspine. mild cord compression at c5,6, normal signal. (Bladimir Gan MD) Subjective Subjective Comments No acute events reported No headache No chest pain No dyspnea no dizziness no syncopal event feeling about 80% better no problems with his current dose of Sinemet does not notice any dizziness with changes in positions Active Medications Current Medications Medications (Trade) Dose Ordered Sig/Lynnette Route Start Time Stop Time Status Last Admin Sodium Chloride 1,000 ml @ 100 mls/hr Q10H IV 02/08/17 15:29 02/08/17 15:50 (NS Flush) 2 ml UNSCH PRN IV FLUSH 02/08/17 15:30 (NS Flush) 2 ml BID IV FLUSH 02/08/17 21:00 02/08/17 21:17 (Tylenol) 650 mg Q4H PRN PO 02/08/17 15:30 (Zofran Inj) 4 mg Q6H PRN IVP 02/08/17 15:30 (Lovenox Inj) 40 mg Q24H SQ 02/08/17 17:00 02/08/17 16:47 (Narcan Inj) 0.4 mg UNSCH PRN IV PUSH 02/08/17 15:30 (Rand-Colace) 1 tab BID PO 02/08/17 21:00 02/08/17 21:17 (Milk Of Magnesia Liq) 30 ml Q12H PRN PO 02/08/17 15:30 (Senokot) 17.2 mg Q12H PRN PO 02/08/17 15:30 (Dulcolax Supp) 10 mg DAILY PRN RECTAL 02/08/17 15:30 (Lactulose Liq) 30 ml DAILY PRN PO 02/08/17 15:30 (Sinemet 25-100 Mg) 2 tab Q4HR PO 02/08/17 20:00 02/09/17 08:23 (Cozaar) 50 mg DAILY PO 02/09/17 10:00 02/09/17 10:10 Allergies Allergies Coded Allergies codeine (Unverified Allergy, Severe, HALLUCINATIONS, 02/08/17) zolpidem (Unverified Adverse Reaction, Mild, sleep walking, 02/08/17) (Leah Matthew) Review of Systems All other ROS: ROS reviewed as documented in chart (Leah Matthew) Exam I&O / VS Vital Signs Date Time Temp Pulse Resp B/P (MAP) Pulse Ox O2 Delivery O2 Flow Rate FiO2 02/09/17 07:51 121/75 (90) 133/77 (95) 02/09/17 07:45 98.3 80 22 180/97 (124) 98 02/09/17 07:34 98 02/09/17 04:10 78 02/09/17 03:18 97.9 81 16 154/94 (114) 98 02/09/17 00:10 81 02/08/17 23:38 98.2 86 17 153/90 (111) 97 02/08/17 20:45 97 02/08/17 20:35 98.2 92 17 138/93 (108) 99 157/87 (110) 133/80 (97) 02/08/17 20:13 98 02/08/17 17:13 82 02/08/17 16:54 97.5 82 18 177/72 (107) 96 02/08/17 16:28 02/08/17 13:38 72 18 166/84 (111) 100 Room Air General: Alert and Oriented, No acute distress Eye: EOMI Respiratory: Non-labored respirations Cardiology: Normal rate Neurologic: Alert, Oriented, Normal sensory, CN II-XII intact, Normal DTR's Psychiatric: Cooperative, Appropriate mood & affect, Normal judgement Exam Comments trace intermittent R thumb tremor, minimal rigidity in uppers and lowers, minimal slowing with RAYMUNDO/RSM R>L, gait withheld, mild facial masking, no drift (Leah Matthew) Objective Micro and Labs Laboratory Tests Test 02/08/17 16:20 02/08/17 16:50 02/08/17 22:50 02/09/17 06:30 Urine Color YELLOW Urine Turbidity CLEAR Urine pH 6.0 Urine Specific [place] 1.030 Urine Protein TRACE Urine Glucose (UA) NEG Urine Ketones TRACE Urine Occult Blood NEG Urine Nitrite NEG Urine Bilirubin NEG Urine Urobilinogen LESS THAN 2.0 Urine Leukocyte Esterase NEG Urine WBC 1 Urine Hyaline Casts 6 Urine Mucus FEW Microscopic Urinalysis Comment CULT NOT INDICATED Total Creatine Kinase 66 68 Troponin I LESS THAN 0.02 LESS THAN 0.02 Triglycerides Level 85 Cholesterol Level 108 LDL Cholesterol 52 HDL Cholesterol 39.1 Cholesterol/HDL Ratio 2.76 Vitamin B12 Level 813 Free Thyroxine 1.27 White Blood Count 8.1 Red Blood Count 4.07 Hemoglobin 12.8 Hematocrit 38.3 Mean Corpuscular Volume 93.9 Mean Corpuscular Hemoglobin 31.4 Mean Corpuscular Hemoglobin Concent 33.4 Red Cell Distribution Width 13.5 Platelet Count 164 Mean Platelet Volume 8.9 Neutrophils (%) (Auto) 78.7 Lymphocytes (%) (Auto) 12.2 Monocytes (%) (Auto) 7.5 Eosinophils (%) (Auto) 1.0 Basophils (%) (Auto) 0.6 Neutrophils # (Auto) 6.4 Lymphocytes # (Auto) 1.0 Monocytes # (Auto) 0.6 Eosinophils # (Auto) 0.1 Basophils # (Auto) 0.1 CBC Comment DIFF FINAL Differential Comment Blood Urea Nitrogen 26 Creatinine 0.97 Random Glucose 92 Calcium Level 8.8 Sodium Level 136 Potassium Level 4.1 Chloride Level 103 Carbon Dioxide Level 25.3 Anion Gap 8 Estimat Glomerular Filtration Rate 76 Diagnostic Tests Last 48 hours Impressions Cervical Spine MRI 02/08/17 1412 Signed Impressions: Service Date/Time: Wednesday, February 08, 2017 18:01 - CONCLUSION: 1. At C5-6 there is posterior osteophytic ridging resulting in moderate canal stenosis and mild cord compression mild bilateral foraminal stenosis. 2. Less severe degenerative changes remainder of the cervical spine as above. Mild cord compression at C6-7. 3. No acute fracture or spondylolisthesis. No cord signal abnormality. Hector Mcfarland MD Neck Magnetic Resonance Angiography 02/08/17 1403 Signed Impressions: Service Date/Time: Wednesday, February 08, 2017 18:01 - CONCLUSION: 1. Examination is within normal limits for age. Hector Mcfarland MD Head Magnetic Resonance Angiography 02/08/17 1403 Signed Impressions: Service Date/Time: Wednesday, February 08, 2017 18:01 - CONCLUSION: 1. Exam within normal limits for age. Hector Mcfarland MD Brain MRI 02/08/17 1403 Signed Impressions: Service Date/Time: Wednesday, February 08, 2017 18:01 - CONCLUSION: 1. Probable remote lacunar infarct right basal ganglia. No acute findings. Hector Mcfarland MD Cervical Spine CT 02/08/17 1006 Signed Impressions: Service Date/Time: Wednesday, February 08, 2017 10:38 - CONCLUSION: 1. No fracture or dislocation. 2. Diffuse severe degenerative changes as detailed above. 3. Carotid artery atherosclerotic calcifications. Orlin Crow Jr., MD Head CT 02/08/17 1004 Signed Impressions: Service Date/Time: Wednesday, February 08, 2017 10:38 - CONCLUSION: Age-indeterminate bilateral lacunar infarcts. Mitchell Bryson MD Chest X-Ray 02/08/17 1004 Signed Impressions: Service Date/Time: Wednesday, February 08, 2017 10:22 - CONCLUSION: No acute disease. Clint Rodriguez MD FACR EEG- mild encephalopathy in drowsy state, cardiac arrythmia noted (Leah Matthew) Problem Qualifiers (1) Syncope: Qualified Codes: R55 - Syncope and collapse (2) Hypertension: Qualified Codes: I10 - Essential (primary) hypertension Leah Matthew Feb 09, 2017 11:17 Bladimir Gan MD Feb 09, 2017 13:37
--- NOTE | 2017-02-09 11:30 | PD.CONS ---
HPI Consult Requested By Primary Care Physician Bandar Jolly MD History of Present Illness 72-year-old M admitted for neck pain, followed by syncopal type episode at home. came to er for neck pain, given Toradol for pain, also given Valium. improved. ct cspine no acute fx/lesion. came back after he got weak and ?eyes rolled back confused after. admits to feeling lightheaded at times when going from sitting to standing position. feels fine at present. no hx of tia/stroke/ sz. dx'd with PD 9 months ago. negative cardiac enzymes, ekg unremarkable. telemetry brief episodes of SVT. Review of Systems Consitutional: DENIES: Fatigue, Fever, Chills, Weight gain, Weight loss Eyes: DENIES: Amaurosis Fugax, Change in vision HEENT: DENIES: Lightheadedness, Change in hearing Respiratory: DENIES: See HPI, Cough, Snoring, Shortness of breath, Wheezing, Sputum production Cardiovascular: DENIES: See HPI, Chest pain, Palpitations, Syncope, Tachycardia Gastrointestinal: DENIES: Nausea, Vomiting, Change in bowel habits, Reflux, Bloody stools, Melena Genitourinary: DENIES: Urinary incontinence, Difficulty voiding Integumentary: DENIES: Rash Neurologic: DENIES: Tingling or numbness, Memory problems, Poor Balance, Stroke symptoms Musculoskeletal: DENIES: Joint pain, Muscle pain, Limited range of motion, Back pain Psychiatric: DENIES: Anxiety, Depression, Sleep disturbances Hematologic: DENIES: Bruising tendencies, Bleeding tendencies Endocrine: DENIES: Weight gain, Weight loss, Thyroid disease Past Family Social History Allergies: Coded Allergies: codeine (Unverified Allergy, Severe, HALLUCINATIONS, 02/08/17) zolpidem (Unverified Adverse Reaction, Mild, sleep walking, 02/08/17) Past Medical History OA Hypertension GERD Hiatal Hernia Parkinson's disease Past Surgical History Appendectomy Left knee replacement Reported Medications Reported Meds & Active Scripts Active Reported Losartan (Losartan Potassium) 100 Mg Tab 100 Mg PO DAILY Aspir-81 (Aspirin) 81 Mg Tabdr 81 Mg PO DAILY Carbidopa-Levodopa 25-100 Mg Tab 2 Tab PO Q4HR Active Ordered Medications Current Medications Medications (Trade) Dose Ordered Sig/Lynnette Route Start Time Stop Time Status Last Admin Sodium Chloride 1,000 ml @ 100 mls/hr Q10H IV 02/08/17 15:29 02/08/17 15:50 (NS Flush) 2 ml UNSCH PRN IV FLUSH 02/08/17 15:30 (NS Flush) 2 ml BID IV FLUSH 02/08/17 21:00 02/08/17 21:17 (Tylenol) 650 mg Q4H PRN PO 02/08/17 15:30 (Zofran Inj) 4 mg Q6H PRN IVP 02/08/17 15:30 (Lovenox Inj) 40 mg Q24H SQ 02/08/17 17:00 02/08/17 16:47 (Narcan Inj) 0.4 mg UNSCH PRN IV PUSH 02/08/17 15:30 (Rand-Colace) 1 tab BID PO 02/08/17 21:00 02/08/17 21:17 (Milk Of Magnesia Liq) 30 ml Q12H PRN PO 02/08/17 15:30 (Senokot) 17.2 mg Q12H PRN PO 02/08/17 15:30 (Dulcolax Supp) 10 mg DAILY PRN RECTAL 02/08/17 15:30 (Lactulose Liq) 30 ml DAILY PRN PO 02/08/17 15:30 (Sinemet 25-100 Mg) 2 tab Q4HR PO 02/08/17 20:00 02/09/17 08:23 (Cozaar) 50 mg DAILY PO 02/09/17 10:00 02/09/17 10:10 Social History Lives with his , no tob/illicit drug use Physical Exam Vital Signs Vital Signs Date Time Temp Pulse Resp B/P (MAP) Pulse Ox O2 Delivery O2 Flow Rate FiO2 02/09/17 07:51 121/75 (90) 133/77 (95) 02/09/17 07:45 98.3 80 22 180/97 (124) 98 02/09/17 07:34 98 02/09/17 04:10 78 02/09/17 03:18 97.9 81 16 154/94 (114) 98 02/09/17 00:10 81 02/08/17 23:38 98.2 86 17 153/90 (111) 97 02/08/17 20:45 97 02/08/17 20:35 98.2 92 17 138/93 (108) 99 157/87 (110) 133/80 (97) 02/08/17 20:13 98 02/08/17 17:13 82 02/08/17 16:54 97.5 82 18 177/72 (107) 96 02/08/17 16:28 02/08/17 13:38 72 18 166/84 (111) 100 Room Air Physical Exam GENERAL: Well-nourished, well-developed patient. SKIN: Warm and dry. HEAD: Normocephalic. EYES: No scleral icterus. No injection or drainage. NECK: Supple, trachea midline. No JVD or lymphadenopathy. CARDIOVASCULAR: Regular rate and rhythm without murmurs, gallops, or rubs. RESPIRATORY: Breath sounds equal bilaterally. No accessory muscle use. GASTROINTESTINAL: Abdomen soft, non-tender, nondistended. EXTREMITIES: No cyanosis, or edema. NEUROLOGICAL: Awake, alert, and oriented x 3. Non-focal. Laboratory Laboratory Tests Test 02/08/17 16:20 02/08/17 16:50 02/08/17 22:50 02/09/17 06:30 Urine Color YELLOW Urine Turbidity CLEAR Urine pH 6.0 Urine Specific [place] 1.030 Urine Protein TRACE Urine Glucose (UA) NEG Urine Ketones TRACE Urine Occult Blood NEG Urine Nitrite NEG Urine Bilirubin NEG Urine Urobilinogen LESS THAN 2.0 Urine Leukocyte Esterase NEG Urine WBC 1 Urine Hyaline Casts 6 Urine Mucus FEW Microscopic Urinalysis Comment CULT NOT INDICATED Total Creatine Kinase 66 68 Troponin I LESS THAN 0.02 LESS THAN 0.02 Triglycerides Level 85 Cholesterol Level 108 LDL Cholesterol 52 HDL Cholesterol 39.1 Cholesterol/HDL Ratio 2.76 Vitamin B12 Level 813 Free Thyroxine 1.27 White Blood Count 8.1 Red Blood Count 4.07 Hemoglobin 12.8 Hematocrit 38.3 Mean Corpuscular Volume 93.9 Mean Corpuscular Hemoglobin 31.4 Mean Corpuscular Hemoglobin Concent 33.4 Red Cell Distribution Width 13.5 Platelet Count 164 Mean Platelet Volume 8.9 Neutrophils (%) (Auto) 78.7 Lymphocytes (%) (Auto) 12.2 Monocytes (%) (Auto) 7.5 Eosinophils (%) (Auto) 1.0 Basophils (%) (Auto) 0.6 Neutrophils # (Auto) 6.4 Lymphocytes # (Auto) 1.0 Monocytes # (Auto) 0.6 Eosinophils # (Auto) 0.1 Basophils # (Auto) 0.1 CBC Comment DIFF FINAL Differential Comment Blood Urea Nitrogen 26 Creatinine 0.97 Random Glucose 92 Calcium Level 8.8 Sodium Level 136 Potassium Level 4.1 Chloride Level 103 Carbon Dioxide Level 25.3 Anion Gap 8 Estimat Glomerular Filtration Rate 76 Result Diagram: 02/09/17 0630 02/09/17 0630 Imaging Last Impressions Cervical Spine MRI 02/08/17 1412 Signed Impressions: Service Date/Time: Wednesday, February 08, 2017 18:01 - CONCLUSION: 1. At C5-6 there is posterior osteophytic ridging resulting in moderate canal stenosis and mild cord compression mild bilateral foraminal stenosis. 2. Less severe degenerative changes remainder of the cervical spine as above. Mild cord compression at C6-7. 3. No acute fracture or spondylolisthesis. No cord signal abnormality. Hector Mcfarland MD Neck Magnetic Resonance Angiography 02/08/17 1403 Signed Impressions: Service Date/Time: Wednesday, February 08, 2017 18:01 - CONCLUSION: 1. Examination is within normal limits for age. Hector Mcfarland MD Head Magnetic Resonance Angiography 02/08/17 1403 Signed Impressions: Service Date/Time: Wednesday, February 08, 2017 18:01 - CONCLUSION: 1. Exam within normal limits for age. Hector Mcfarland MD Brain MRI 02/08/17 1403 Signed Impressions: Service Date/Time: Wednesday, February 08, 2017 18:01 - CONCLUSION: 1. Probable remote lacunar infarct right basal ganglia. No acute findings. Hector Mcfarland MD Cervical Spine CT 02/08/17 1006 Signed Impressions: Service Date/Time: Wednesday, February 08, 2017 10:38 - CONCLUSION: 1. No fracture or dislocation. 2. Diffuse severe degenerative changes as detailed above. 3. Carotid artery atherosclerotic calcifications. Orlin Crow Jr., MD Head CT 02/08/17 1004 Signed Impressions: Service Date/Time: Wednesday, February 08, 2017 10:38 - CONCLUSION: Age-indeterminate bilateral lacunar infarcts. Mitchell Bryson MD Chest X-Ray 02/08/17 1004 Signed Impressions: Service Date/Time: Wednesday, February 08, 2017 10:22 - CONCLUSION: No acute disease. Clint Rodriguez MD FACR Assessment and Plan Problem List: (1) Syncope ICD Codes: R55 - Syncope and collapse Status: Acute Plan: negative cardiac enzymes x3 no CV complaints Cont home medications 48hrs Holter upon discharge echo today if unremarkable he can F/U with Dr. Cadena upon discharge (2) Parkinson disease ICD Codes: G20 - Parkinson's disease Status: Chronic (3) Hypertension ICD Codes: I10 - Hypertension Status: Acute (4) GERD (gastroesophageal reflux disease) ICD Codes: K21.9 - GERD (gastroesophageal reflux disease) Status: Acute Problem Qualifiers (1) Syncope: Qualified Codes: R55 - Syncope and collapse (2) Hypertension: Qualified Codes: I10 - Essential (primary) hypertension Douglas Morgan MD Feb 09, 2017 11:30
--- NOTE | 2017-02-09 13:19 | HHI.PR ---
Subjective Remarks Follow-up syncope 02/09/17-patient seen and examined, no syncopal episodes since admission, alert and oriented 3. Denies any chest pain or shortness of breath. Objective Vitals Vital Signs Date Time Temp Pulse Resp B/P (MAP) Pulse Ox O2 Delivery O2 Flow Rate FiO2 02/09/17 12:21 98.1 88 20 153/88 (109) 97 02/09/17 07:51 121/75 (90) 133/77 (95) 02/09/17 07:45 98.3 80 22 180/97 (124) 98 02/09/17 07:34 98 02/09/17 04:10 78 02/09/17 03:18 97.9 81 16 154/94 (114) 98 02/09/17 00:10 81 02/08/17 23:38 98.2 86 17 153/90 (111) 97 02/08/17 20:45 97 02/08/17 20:35 98.2 92 17 138/93 (108) 99 157/87 (110) 133/80 (97) 02/08/17 20:13 98 02/08/17 17:13 82 02/08/17 16:54 97.5 82 18 177/72 (107) 96 02/08/17 16:28 02/08/17 13:38 72 18 166/84 (111) 100 Room Air I/O 02/08/17 02/08/17 02/08/17 02/09/17 02/09/17 02/09/17 07:00 15:00 23:00 07:00 15:00 23:00 Intake Total 240 ml Balance 240 ml Intake Oral 240 ml # Voids 1 Result Diagram: 02/09/17 0630 02/09/17 0630 Imaging Last Impressions Cervical Spine MRI 02/08/17 1412 Signed Impressions: Service Date/Time: Wednesday, February 08, 2017 18:01 - CONCLUSION: 1. At C5-6 there is posterior osteophytic ridging resulting in moderate canal stenosis and mild cord compression mild bilateral foraminal stenosis. 2. Less severe degenerative changes remainder of the cervical spine as above. Mild cord compression at C6-7. 3. No acute fracture or spondylolisthesis. No cord signal abnormality. Hector Mcfarland MD Neck Magnetic Resonance Angiography 02/08/17 1403 Signed Impressions: Service Date/Time: Wednesday, February 08, 2017 18:01 - CONCLUSION: 1. Examination is within normal limits for age. Hector Mcfarland MD Head Magnetic Resonance Angiography 02/08/17 1403 Signed Impressions: Service Date/Time: Wednesday, February 08, 2017 18:01 - CONCLUSION: 1. Exam within normal limits for age. Hector Mcfarland MD Brain MRI 02/08/17 1403 Signed Impressions: Service Date/Time: Wednesday, February 08, 2017 18:01 - CONCLUSION: 1. Probable remote lacunar infarct right basal ganglia. No acute findings. Hector Mcfarland MD Cervical Spine CT 02/08/17 1006 Signed Impressions: Service Date/Time: Wednesday, February 08, 2017 10:38 - CONCLUSION: 1. No fracture or dislocation. 2. Diffuse severe degenerative changes as detailed above. 3. Carotid artery atherosclerotic calcifications. Orlin Crow Jr., MD Head CT 02/08/17 1004 Signed Impressions: Service Date/Time: Wednesday, February 08, 2017 10:38 - CONCLUSION: Age-indeterminate bilateral lacunar infarcts. Mitchell Bryson MD Chest X-Ray 02/08/17 1004 Signed Impressions: Service Date/Time: Wednesday, February 08, 2017 10:22 - CONCLUSION: No acute disease. Clint Rodriguez MD FACR Objective Remarks GENERAL: NAD SKIN: Warm and dry. HEAD: Normocephalic. EYES: No scleral icterus. No injection or drainage. NECK: Supple, trachea midline. No JVD or lymphadenopathy. CARDIOVASCULAR: Regular rate and rhythm without murmurs, gallops, or rubs. RESPIRATORY: Breath sounds equal bilaterally. No accessory muscle use. GASTROINTESTINAL: Abdomen soft, non-tender, nondistended. MUSCULOSKELETAL: No cyanosis, or edema. BACK: Nontender without obvious deformity. No CVA tenderness. A/P Problem List: (1) Syncope ICD Code: R55 - Syncope and collapse Status: Acute (2) Parkinson disease ICD Code: G20 - Parkinson's disease Status: Chronic (3) Hypertension ICD Code: I10 - Hypertension Status: Acute (4) GERD (gastroesophageal reflux disease) ICD Code: K21.9 - GERD (gastroesophageal reflux disease) Status: Acute Assessment and Plan 72-year-old man with Syncope-resolved All imaging studies including brain MRI, MRA were unremarkable, EEG mild encephalopathy in drowsy state, cardiac arrhythmia noted Appreciate input from neurology Appreciate input from cardiology pending 2-D echo. Patient will have Holter monitoring 48 hours upon discharge PT/OT/ST 2. OA by history 3. Hypertension: Secondary to orthostatic BP, will decrease Cozaar to 50 mg daily 4. GERD on Famotidine 5. Parkinson's Disease to continue Sinemet 6. Subclinical Hypothyroidism asked for Free T4 DVT prophylaxis with Lovenox. Problem Qualifiers (1) Syncope: Qualified Codes: R55 - Syncope and collapse (2) Hypertension: Qualified Codes: I10 - Essential (primary) hypertension Dominic Preciado MD Feb 09, 2017 13:19
[2017-02-09] MEDS ORDERED: COZA50TA PO (13:23)
--- NOTE | 2017-02-09 14:27 | PD.CONS ---
[facility] Service Neurosurgery Consult Requested By Dr canales Reason for Consult Cervical spondylosis Primary Care Physician Bandar Jolly MD History of Present Illness Disease 72-year-old male with history of hypertension and Parkinson disease, who was brought in by his for altered mental status. Apparently he was previously seen in the emergency room for neck pain. Patient was given IM injection Toradol and Valium 5 mg and was was discharged earlier this morning. He was sitting down at a table. Patient's states that patient's eyes rolled back and patient became unresponsive for about 10 minutes. Following this event he seemed to be more confused when he woke up. Reported headaches. Hedenies any visual changes. He denies any focal weakness or numbness of extremities. Denies any history of TIA or CVA. Denies any history of seizure. . An EEG was done. Doctor Bladimir Ortizaw him and ordered an MRI of the cervical spine which show cervical spondylosis and stenosis. Neurosurgical consultation was requested Past Family Social History Allergies: Coded Allergies: codeine (Unverified Allergy, Severe, HALLUCINATIONS, 02/08/17) zolpidem (Unverified Adverse Reaction, Mild, sleep walking, 02/08/17) Past Medical History Osteoarthritis Hypertension GERD Hiatal Hernia Parkinson's disease Past Surgical History Appendectomy Left knee replacement Reported Medications Losartan (Losartan Potassium) 100 Mg Tab 100 Mg PO DAILY Aspir-81 (Aspirin) 81 Mg Tabdr 81 Mg PO DAILY Carbidopa-Levodopa 25-100 Mg Tab 2 Tab PO Q4HR Active Ordered Medications Current Medications Medications (Trade) Dose Ordered Sig/Lynnette Route Start Time Stop Time Status Last Admin Sodium Chloride 1,000 ml @ 100 mls/hr Q10H IV 02/08/17 15:29 02/08/17 15:50 (NS Flush) 2 ml UNSCH PRN IV FLUSH 02/08/17 15:30 (NS Flush) 2 ml BID IV FLUSH 02/08/17 21:00 (Tylenol) 650 mg Q4H PRN PO 02/08/17 15:30 (Zofran Inj) 4 mg Q6H PRN IVP 02/08/17 15:30 (Lovenox Inj) 40 mg Q24H SQ 02/08/17 17:00 02/08/17 16:47 (Narcan Inj) 0.4 mg UNSCH PRN IV PUSH 02/08/17 15:30 (Rand-Colace) 1 tab BID PO 02/08/17 21:00 (Milk Of Magnesia Liq) 30 ml Q12H PRN PO 02/08/17 15:30 (Senokot) 17.2 mg Q12H PRN PO 02/08/17 15:30 (Dulcolax Supp) 10 mg DAILY PRN RECTAL 02/08/17 15:30 (Lactulose Liq) 30 ml DAILY PRN PO 02/08/17 15:30 Family History His family history was reviewed. Father with DM Social History Lives with his , Denies any toxic habit No alcohol. No tobacco use. No illicit drug use Physical Exam Vital Signs Vital Signs Date Time Temp Pulse Resp B/P (MAP) Pulse Ox O2 Delivery O2 Flow Rate FiO2 02/09/17 12:21 98.1 88 20 153/88 (109) 97 02/09/17 07:51 121/75 (90) 133/77 (95) 02/09/17 07:45 98.3 80 22 180/97 (124) 98 02/09/17 07:34 98 02/09/17 04:10 78 02/09/17 03:18 97.9 81 16 154/94 (114) 98 02/09/17 00:10 81 02/08/17 23:38 98.2 86 17 153/90 (111) 97 02/08/17 20:45 97 02/08/17 20:35 98.2 92 17 138/93 (108) 99 157/87 (110) 133/80 (97) 02/08/17 20:13 98 02/08/17 17:13 82 02/08/17 16:54 97.5 82 18 177/72 (107) 96 02/08/17 16:28 Physical Exam mr Leblanc is alert, awake and oriented to time, place and person. Speech is fluent. Cranial nerve examination: pupils to be equal, round and reactive to light. Extra-ocular movements are intact. Facial motor and sensory function are normal and symmetrical. Gross hearing appears decreased. Sternocleidomastoid and trapezius muscles are symmetrical. Other cranial nerves are intact. Neck is soft and supple with a decreased range of motion without pain. Muscle testing reveals normal bulk and tone overall without rigidity, spasticity , fasciculations, or atrophy. Muscle strength is 5/5 in all muscle groups of his left upper extremity including deltoid, biceps, triceps, brachioradialis, wrist extension and manager sterile processing with 4+/4 on the right.. In the lower extremities, strength is 5/5 in both iliopsoas, quadriceps, hamstrings, plantar flexion, dorsiflexion, and extensor hallicus longus. Sensory examination is intact to light touch and sharp/dull discrimination in both the upper and lower extremities, symmetrically. Deep tendon reflexes are 2+ and symmetrical in the biceps, triceps, and brachioradialis, bilaterally, in the upper extremities. In the lower extremities , the patellar and Achilles are 2+, bilaterally. There is a bilateral plantar flexion response. Hoffmanns sign is negative. There is no clonus or other abnormal reflexes noted. Cerebellar examination is intact to [id number] test, rapid rhythmic alternating motion. There is no dysmetria, dysdiadochokinesia, truncal ataxia Laboratory Laboratory Tests Test 02/08/17 16:20 02/08/17 16:50 02/08/17 22:50 02/09/17 06:30 Urine Color YELLOW Urine Turbidity CLEAR Urine pH 6.0 Urine Specific [place] 1.030 Urine Protein TRACE Urine Glucose (UA) NEG Urine Ketones TRACE Urine Occult Blood NEG Urine Nitrite NEG Urine Bilirubin NEG Urine Urobilinogen LESS THAN 2.0 Urine Leukocyte Esterase NEG Urine WBC 1 Urine Hyaline Casts 6 Urine Mucus FEW Microscopic Urinalysis Comment CULT NOT INDICATED Total Creatine Kinase 66 68 Troponin I LESS THAN 0.02 LESS THAN 0.02 Triglycerides Level 85 Cholesterol Level 108 LDL Cholesterol 52 HDL Cholesterol 39.1 Cholesterol/HDL Ratio 2.76 Vitamin B12 Level 813 Free Thyroxine 1.27 White Blood Count 8.1 Red Blood Count 4.07 Hemoglobin 12.8 Hematocrit 38.3 Mean Corpuscular Volume 93.9 Mean Corpuscular Hemoglobin 31.4 Mean Corpuscular Hemoglobin Concent 33.4 Red Cell Distribution Width 13.5 Platelet Count 164 Mean Platelet Volume 8.9 Neutrophils (%) (Auto) 78.7 Lymphocytes (%) (Auto) 12.2 Monocytes (%) (Auto) 7.5 Eosinophils (%) (Auto) 1.0 Basophils (%) (Auto) 0.6 Neutrophils # (Auto) 6.4 Lymphocytes # (Auto) 1.0 Monocytes # (Auto) 0.6 Eosinophils # (Auto) 0.1 Basophils # (Auto) 0.1 CBC Comment DIFF FINAL Differential Comment Blood Urea Nitrogen 26 Creatinine 0.97 Random Glucose 92 Calcium Level 8.8 Sodium Level 136 Potassium Level 4.1 Chloride Level 103 Carbon Dioxide Level 25.3 Anion Gap 8 Estimat Glomerular Filtration Rate 76 Result Diagram: 02/09/1762902/09/17629 Imaging Last 48 hours Impressions Cervical Spine MRI 02/08/17 1412 Signed Impressions: Service Date/Time: Wednesday, February 08, 2017 18:01 - CONCLUSION: 1. At C5-6 there is posterior osteophytic ridging resulting in moderate canal stenosis and mild cord compression mild bilateral foraminal stenosis. 2. Less severe degenerative changes remainder of the cervical spine as above. Mild cord compression at C6-7. 3. No acute fracture or spondylolisthesis. No cord signal abnormality. Hector Mcfarland MD Neck Magnetic Resonance Angiography 02/08/17 1403 Signed Impressions: Service Date/Time: Wednesday, February 08, 2017 18:01 - CONCLUSION: 1. Examination is within normal limits for age. Hector Mcfarland MD Head Magnetic Resonance Angiography 02/08/17 140 Signed Impressions: Service Date/Time: Wednesday, February 08, 2017 18:01 - CONCLUSION: 1. Exam within normal limits for age. Hector Mcfarland MD Brain MRI 02/08/17 1403 Signed Impressions: Service Date/Time: Wednesday, February 08, 2017 18:01 - CONCLUSION: 1. Probable remote lacunar infarct right basal ganglia. No acute findings. Hector Mcfarland MD Cervical Spine CT 02/08/17 1006 Signed Impressions: Service Date/Time: Wednesday, February 08, 2017 10:38 - CONCLUSION: 1. No fracture or dislocation. 2. Diffuse severe degenerative changes as detailed above. 3. Carotid artery atherosclerotic calcifications. Orlin Crow Jr., MD Head CT 02/08/17 1004 Signed Impressions: Service Date/Time: Wednesday, February 08, 2017 10:38 - CONCLUSION: Age-indeterminate bilateral lacunar infarcts. Mitchell Bryson MD Chest X-Ray 02/08/17 1004 Signed Impressions: Service Date/Time: Wednesday, February 08, 2017 10:22 - CONCLUSION: No acute disease. Clint Rodriguez MD FACR Assessment and Plan Assessment and Plan Caprini VTE Risk Assessment Caprini VTE Risk Assessment Caprini VTE Risk Assessment: Mod/High Risk (score >= 2) Caprini Risk Assessment Model Point Value = 1 Point Value = 2 Point Value = 3 Point Value = 5 Age 41-60 Minor surgery BMI > 25 kg/m2 Swollen legs Varicose veins or History of unexplained or recurrent spontaneous Oral contraceptives or hormone replacement Sepsis (< 1 month) Serious lung disease, including pneumonia (< 1 month) Abnormal pulmonary function Acute myocardial infarction Congestive heart failure (< 1 month) History of inflammatory bowel disease Medical patient at bed rest Age 61-74 Arthroscopic surgery Major open surgery (> 45 min) Laparoscopic surgery (> 45 min) Malignancy Confined to bed (> 72 hours) Immobilizing plaster cast Central venous access Age >= 75 History of VTE Family history of VTE Factor V Leiden Prothrombin [id number] Lupus anticoagulant Anticardiolipin antibodies Elevated serum homocysteine Heparin-induced thrombocytopenia Other congenital or acquired thrombophilia Stroke (< 1 month) Elective arthroplasty Hip, pelvis, or leg fracture Acute spinal cord injury (< 1 month) Prophylaxis Regimen Total Risk Factor Score Risk Level Prophylaxis Regimen 0-1 Low Early ambulation 2 Moderate Order ONE of the following: *Sequential Compression Device (SCD) *Heparin 5000 units SQ BID 3-4 Higher Order ONE of the following medications: *Heparin 5000 units SQ TID *Enoxaparin/Lovenox 40 mg SQ daily (WT < 150 kg, CrCl > 30 mL/min) *Enoxaparin/Lovenox 30 mg SQ daily (WT < 150 kg, CrCl > 10-29 mL/min) *Enoxaparin/Lovenox 30 mg SQ BID (WT < 150 kg, CrCl > 30 mL/min) AND/OR *Sequential Compression Device (SCD) 5 or more Highest Order ONE of the following medications: *Heparin 5000 units SQ TID (Preferred with Epidurals) *Enoxaparin/Lovenox 40 mg SQ daily (WT < 150 kg, CrCl > 30 mL/min) *Enoxaparin/Lovenox 30 mg SQ daily (WT < 150 kg, CrCl > 10-29 mL/min) *Enoxaparin/Lovenox 30 mg SQ BID (WT < 150 kg, CrCl > 30 mL/min) AND *Sequential Compression Device (SCD) Attending Statement neuro checks in a serial fashion. Syncopal Episode. Appears to be a seizure versus vasovagal episode. Workup initiated by the neurologist. MRI, MRA, EEG and follow hospitalized, also will continue management, for possible TIA/CVA continue Aspirin 325 mg, continue Cardiac monitoring, Echocardiogram, Cardiac Enzymes, complete laboratory EEG consult PT Arterial Hypertension continue antihypertensives and follow BP GERD on Famotidine Parkinson's Disease to continue Dopa. defer to dr canales Hypothyroidism asked for Free T4 Pulmonary. aggressive pulmonary toilette, nasotracheal suction, and breathing treatments with nebulizers. Nutrition. Tolerating Oral diet Renal. monitor closely urine output, BUN and creatinine Endocrine. Monitor serial Acu checks and SSI as needed in detail ID monitor for signs of infection Jean lyles and SCD's for DVT prophylaxis Paul Croft MD Feb 09, 2017 14:27
[2017-02-09] MEDS: ENOXAPARIN SODIUM 40 MG/0.4 ML SYRINGE SQ SCH (17:00)
--- NOTE | 2017-02-09 18:35 | ECHRPT ---
Indication: CVA/TIA CONCLUSIONS Normal left ventricular size. Mild concentric left ventricular hypertrophy. The left ventricular systolic function is hyperdynamic with an estimated ejection fraction in the ra nge of 65- 70%. Mitral annular calcification is present. Aortic valve sclerosis is present. No aortic valve regurgitation. Moderate aortic valve stenosis. Aortic valve area is 0.83 cm. Aortic valve mean gradient is 36 mmHg. There is trace tricuspid valve regurgitation. The pulmonary valve is not well visualized. A prominent epicardial fat pad is present. There is a small pericardial effusion present. BP: 154 / 94 HR: 81 Rhythm: Sinus MEASUREMENTS (Male / Female) Normal Values Technical Quality:Fair 2D ECHO LV Diastolic Diameter PLAX 4.5 cm 4.2 - 5.9 / 3.9 - 5.3 cm LV Systolic Diameter PLAX 2.8 cm IVS Diastolic Thickness 1.0 cm 0.6 - 1.0 / 0.6 - 0.9 cm LVPW Diastolic Thickness 1.0 cm 0.6 - 1.0 / 0.6 - 0.9 cm LV Relative Wall Thickness 0.5 LVOT Diameter 2.3 cm Aortic Root Diameter 3.3 cm LA Systolic Diameter LX 3.2 cm 3.0 - 4.0 / 2.7 - 3.8 cm DOPPLER AV Peak Velocity 390.0 cm/s AV Peak Gradient 60.8 mmHg AV Mean Gradient 36.0 mmHg AV Velocity Time Integral 89.1 cm LVOT Peak Velocity 91.1 cm/s LVOT Peak Gradient 3.3 mmHg LVOT Velocity Time Integral 17.7 cm LVOT Cardiac Index 2589.3 cm/minm AV Area Cont Eq vti 0.8 cm AV Area Cont Eq pk 1.0 cm Mitral E Point Velocity 86.1 cm/s Mitral A Point Velocity 135.0 cm/s Mitral E to A Ratio 0.6 LV E' Lateral Velocity 6.6 cm/s Mitral E to LV E' Lateral Ratio 13.0 LV E' Septal Velocity 5.8 cm/s Mitral E to LV E' Septal Ratio 15.0 PV Peak Velocity 81.2 cm/s PV Peak Gradient 2.6 mmHg FINDINGS LEFT VENTRICLE Normal left ventricular size. Mild concentric left ventricular hypertrophy. The left ventricular systolic function is hyperdynamic with an estimated ejection fraction in the ra nge of 65- 70%. RIGHT VENTRICLE Normal right ventricular size and systolic function. LEFT ATRIUM The left atrial size is normal. RIGHT ATRIUM The right atrial size is normal. ATRIAL SEPTUM Normal atrial septal thickness without atrial level shunting by limited color doppler interrogation. AORTA The aortic root and proximal ascending aorta are normal in size on limited imaging. MITRAL VALVE Mitral annular calcification is present. AORTIC VALVE Aortic valve sclerosis is present. No aortic valve regurgitation. Moderate aortic valve stenosis. Aortic valve area is 0.83 cm. Aortic valve mean gradient is 36 mmHg. TRICUSPID VALVE There is trace tricuspid valve regurgitation. PULMONARY VALVE The pulmonary valve is not well visualized. VESSELS The inferior vena cava is normal in size. PERICARDIUM A prominent epicardial fat pad is present. There is a small pericardial effusion present. Nato Flores MD, FACC, FSCAI (Electronically Signed) Final Date:09 February 2017 18:34
[2017-02-10 00:15] VITALS: PULSE 83
[2017-02-10] MEDS: CARBIDOPA/LEVODOPA 25 MG/100 MG TAB PO SCH ×3 (03:35→09:01)
[2017-02-10 03:40] VITALS: BP 172/98; PULSE 81; RESP 18; TEMP 97.9; O2SAT 97
[2017-02-10 04:15] VITALS: PULSE 82
[2017-02-10] MEDS: SODIUM CHLOR 0.9% 1000 ML INJ 1,000 ML IV SCH (07:29)
[2017-02-10 08:08] VITALS: BP_SYST 104; BP_SYST 133; BP_SYST 176; BP_DIAS 69; BP_DIAS 82; BP_DIAS 98; PULSE 87; RESP 22; TEMP 98.2; O2SAT 98
[2017-02-10] MEDS: SODIUM CHLORIDE 0.9% FLUSH 10 ML FLUSH IV FLUSH SCH (09:00)
[2017-02-10] MEDS: DOCUSATE SODIUM 50 MG/SENNA 8.6 MG TAB PO SCH (09:01)
[2017-02-10] MEDS: LOSARTAN 50 MG TAB PO SCH (09:01)
--- NOTE | 2017-02-10 09:55 | HHI.DCPOC ---
Discharge Care Plan Diagnosis: (1) Syncope (2) Aortic stenosis, moderate (3) Chest pain (4) Hypertension (5) GERD (gastroesophageal reflux disease) (6) Parkinson disease Goals to Promote Your Health * To prevent worsening of your condition and complications * To maintain your health at the optimal level Directions to Meet Your Goals Take your medications as prescribed Follow your dietary instruction Follow activity as directed Keep your appointments as scheduled Take your immunizations and boosters as scheduled If your symptoms worsen call your PCP, if no PCP go to Urgent Care Center or Emergency Room Smoking is Dangerous to Your Health. Avoid second hand smoke Call the 24-hour hour crisis hotline for domestic abuse at Judy Puckett PA-C Feb 10, 2017 9:54 am
--- NOTE | 2017-02-10 10:38 | HHI.PR ---
Subjective Remarks Follow-up syncope 02/09/17-patient seen and examined, no syncopal episodes since admission, alert and oriented 3. Denies any chest pain or shortness of breath. 02/10/17-patient seen and examined, stable since admission and denies any chest pain, shortness of breath or syncopal episode. 2-D echo with EF of 65-70%. Clear by neurosurgery for discharge Objective Vitals Vital Signs Date Time Temp Pulse Resp B/P (MAP) Pulse Ox O2 Delivery O2 Flow Rate FiO2 02/10/17 08:08 98.2 87 22 176/98 (124) 98 133/82 (99) 104/69 (81) 02/10/17 04:15 82 02/10/17 03:40 97.9 81 18 172/98 (122) 97 02/10/17 00:15 83 02/09/17 23:58 97.9 80 18 139/88 (105) 96 02/09/17 20:55 98.1 87 18 164/96 (118) 96 02/09/17 20:30 85 02/09/17 17:01 163/89 (113) 126/72 (90) 02/09/17 16:47 97.6 84 20 179/100 (126) 97 02/09/17 12:21 98.1 88 20 153/88 (109) 97 I/O 02/09/17 02/09/17 02/09/17 02/10/17 02/10/17 02/10/17 06:59 14:59 22:59 06:59 14:59 22:59 Intake Total 240 ml Balance 240 ml Intake Oral 240 ml # Voids 1 3 # Bowel Movements 1 Result Diagram: 02/09/17 0630 02/09/17 0630 Imaging Last Impressions Cervical Spine MRI 02/08/17 1412 Signed Impressions: Service Date/Time: Wednesday, February 08, 2017 18:01 - CONCLUSION: 1. At C5-6 there is posterior osteophytic ridging resulting in moderate canal stenosis and mild cord compression mild bilateral foraminal stenosis. 2. Less severe degenerative changes remainder of the cervical spine as above. Mild cord compression at C6-7. 3. No acute fracture or spondylolisthesis. No cord signal abnormality. Hector Mcfarland MD Neck Magnetic Resonance Angiography 02/08/17 1403 Signed Impressions: Service Date/Time: Wednesday, February 08, 2017 18:01 - CONCLUSION: 1. Examination is within normal limits for age. Hector Mcfarland MD Head Magnetic Resonance Angiography 02/08/17 1403 Signed Impressions: Service Date/Time: Wednesday, February 08, 2017 18:01 - CONCLUSION: 1. Exam within normal limits for age. Hector Mcfarland MD Brain MRI 02/08/17 1403 Signed Impressions: Service Date/Time: Wednesday, February 08, 2017 18:01 - CONCLUSION: 1. Probable remote lacunar infarct right basal ganglia. No acute findings. Hector Mcfarland MD Cervical Spine CT 02/08/17 1006 Signed Impressions: Service Date/Time: Wednesday, February 08, 2017 10:38 - CONCLUSION: 1. No fracture or dislocation. 2. Diffuse severe degenerative changes as detailed above. 3. Carotid artery atherosclerotic calcifications. Orlin Crow Jr., MD Head CT 02/08/17 1004 Signed Impressions: Service Date/Time: Wednesday, February 08, 2017 10:38 - CONCLUSION: Age-indeterminate bilateral lacunar infarcts. Mitchell Bryson MD Chest X-Ray 02/08/17 1004 Signed Impressions: Service Date/Time: Wednesday, February 08, 2017 10:22 - CONCLUSION: No acute disease. Clint Rodriguez MD FACR Objective Remarks GENERAL: NAD SKIN: Warm and dry. HEAD: Normocephalic. EYES: No scleral icterus. No injection or drainage. NECK: Supple, trachea midline. No JVD or lymphadenopathy. CARDIOVASCULAR: Regular rate and rhythm without murmurs, gallops, or rubs. RESPIRATORY: Breath sounds equal bilaterally. No accessory muscle use. GASTROINTESTINAL: Abdomen soft, non-tender, nondistended. MUSCULOSKELETAL: No cyanosis, or edema. BACK: Nontender without obvious deformity. No CVA tenderness. A/P Problem List: (1) Syncope ICD Code: R55 - Syncope and collapse Status: Acute (2) Parkinson disease ICD Code: G20 - Parkinson's disease Status: Chronic (3) Hypertension ICD Code: I10 - Hypertension Status: Acute (4) GERD (gastroesophageal reflux disease) ICD Code: K21.9 - GERD (gastroesophageal reflux disease) Status: Acute Assessment and Plan 72-year-old man with Syncope-resolved All imaging studies including brain MRI, MRA were unremarkable, EEG mild encephalopathy in drowsy state, cardiac arrhythmia noted Appreciate input from neurology Appreciate input from cardiology and 2-D echo with EF 65-70%. Patient will have Holter monitoring 48 hours upon discharge PT/OT/ST 2. Cervical spondylosis and stenosis: Appreciate input from neurosurgery, recommended medical management with PT 3. Hypertension: Secondary to orthostatic BP, Cozaar was decreased to 50 mg daily 4. GERD on Famotidine 5. Parkinson's Disease to continue Sinemet 6. Subclinical Hypothyroidism asked for Free T4 DVT prophylaxis with Lovenox. Discharge Planning Discharge patient to home Condition on discharge: Improved Regular Diet as tolerated Ad Liz activity Rx written:see EMR Follow-up with primary care physician in 1week Neurology per protocol NSG per protocol Cardiology in 2-3 weeks Problem Qualifiers (1) Syncope: Qualified Codes: R55 - Syncope and collapse (2) Hypertension: Qualified Codes: I10 - Essential (primary) hypertension Dominic Preciado MD Feb 10, 2017 10:38
--- NOTE | 2017-02-10 11:48 | HHI.NSPN ---
Note Status Status: Progress Note Interval History Diagnosis cervical stenosis Interval History 72-year-old male with history of hypertension and Parkinson disease, who was brought in by his for altered mental status. Apparently he was previously seen in the emergency room for neck pain. Patient was given IM injection Toradol and Valium 5 mg and was was discharged earlier this morning. He was sitting down at a table. Patient's states that patient's eyes rolled back and patient became unresponsive for about 10 minutes. Following this event he seemed to be more confused when he woke up. Reported headaches. Hedenies any visual changes. He denies any focal weakness or numbness of extremities. Denies any history of TIA or CVA. Denies any history of seizure. . An EEG was done. Doctor Bladimir Ortizaw him and ordered an MRI of the cervical spine which show cervical spondylosis and stenosis. Neurosurgical consultation was requested 02/10. No changes overnight. He was requested can tinea conservative treatment Labs, Micro, & Vital Signs Results Date Time Temp Pulse Resp B/P (MAP) Pulse Ox O2 Delivery O2 Flow Rate FiO2 02/10/17 08:08 98.2 87 22 176/98 (124) 98 133/82 (99) 104/69 (81) 02/10/17 04:15 82 02/10/17 03:40 97.9 81 18 172/98 (122) 97 02/10/17 00:15 83 02/09/17 23:58 97.9 80 18 139/88 (105) 96 02/09/17 20:55 98.1 87 18 164/96 (118) 96 02/09/17 20:30 85 02/09/17 17:01 163/89 (113) 126/72 (90) 02/09/17 16:47 97.6 84 20 179/100 (126) 97 02/09/17 12:21 98.1 88 20 153/88 (109) 97 Constitutional Vital Signs Date Time Temp Pulse Resp B/P (MAP) Pulse Ox O2 Delivery O2 Flow Rate FiO2 02/10/17 08:08 98.2 87 22 176/98 (124) 98 133/82 (99) 104/69 (81) 02/10/17 04:15 82 02/10/17 03:40 97.9 81 18 172/98 (122) 97 02/10/17 00:15 83 02/09/17 23:58 97.9 80 18 139/88 (105) 96 02/09/17 20:55 98.1 87 18 164/96 (118) 96 02/09/17 20:30 85 02/09/17 17:01 163/89 (113) 126/72 (90) 02/09/17 16:47 97.6 84 20 179/100 (126) 97 02/09/17 12:21 98.1 88 20 153/88 (109) 97 Physical Exam mr Leblanc is alert, awake and oriented to time, place and person. Speech is fluent. Cranial nerve examination: pupils to be equal, round and reactive to light. Extra-ocular movements are intact. Facial motor and sensory function are normal and symmetrical. Gross hearing appears decreased. Sternocleidomastoid and trapezius muscles are symmetrical. Other cranial nerves are intact. Neck is soft and supple with a decreased range of motion without pain. Muscle testing reveals normal bulk and tone overall without rigidity, spasticity , fasciculations, or atrophy. Muscle strength is 5/5 in all muscle groups of his left upper extremity including deltoid, biceps, triceps, brachioradialis, wrist extension and caterpillar mechanic with 4+/4 on the right.. In the lower extremities, strength is 5/5 in both iliopsoas, quadriceps, hamstrings, plantar flexion, dorsiflexion, and extensor hallicus longus. Sensory examination is intact to light touch and sharp/dull discrimination in both the upper and lower extremities, symmetrically. Deep tendon reflexes are 2+ and symmetrical in the biceps, triceps, and brachioradialis, bilaterally, in the upper extremities. In the lower extremities , the patellar and Achilles are 2+, bilaterally. There is a bilateral plantar flexion response. Hoffmanns sign is negative. There is no clonus or other abnormal reflexes noted. Cerebellar examination is intact to [id number] test, rapid rhythmic alternating motion. There is no dysmetria, dysdiadochokinesia, truncal ataxia Medications Current Medications Current Medications Sodium Chloride 1,000 ml @ 100 mls/hr Q10H IV Last administered on 02/09/17 12:21; Start 02/08/17 at 15:29 Sodium Chloride (NS Flush) 2 ml UNSCH PRN IV FLUSH FLUSH AFTER USING IV ACCESS ; Start 02/08/17 at 15:30 Sodium Chloride (NS Flush) 2 ml BID IV FLUSH Last administered on 02/08/17 21: 17; Start 02/08/17 at 21:00 Acetaminophen (Tylenol) 650 mg Q4H PRN PO TEMP > 100.4; Start 02/08/17 at 15:30 Ondansetron HCl (Zofran Inj) 4 mg Q6H PRN IVP NAUSEA OR VOMITING; Start at 15:30 Enoxaparin Sodium (Lovenox Inj) 40 mg Q24H SQ Last administered on 02/09/17 17 :00; Start 02/08/17 at 17:00 Naloxone HCl (Narcan Inj) 0.4 mg UNSCH PRN IV PUSH SEE LABEL COMMENTS; Start 02/08/17 at 15:30 Senna/Docusate Sodium (Rand-Colace) 1 tab BID PO Last administered on 09:01; Start 02/08/17 at 21:00 Magnesium Hydroxide (Milk Of Magnesia Liq) 30 ml Q12H PRN PO Mild constipation ; Start 02/08/17 at 15:30 Sennosides (Senokot) 17.2 mg Q12H PRN PO Moderate constipation; Start 02/08/17 at 15:30 Bisacodyl (Dulcolax Supp) 10 mg DAILY PRN RECTAL SEVERE CONSITIPATION; Start 02/08/17 at 15:30 Lactulose (Lactulose Liq) 30 ml DAILY PRN PO SEVERE CONSITIPATION; Start at 15:30 Carbidopa/Levodopa (Sinemet 25-100 Mg) 2 tab Q4HR PO Last administered on 09:01; Start 02/08/17 at 20:00 Gadodiamide (Omniscan Pf Inj) 20 ml STK-MED ONCE IV PUSH Last administered on 02/08/17 19:05; Start 02/08/17 at 19:05; Stop 02/08/17 at 19:06; Status DC Losartan Potassium (Cozaar) 50 mg DAILY PO Last administered on 02/10/17t 09:01 ; Start 02/09/17 at 10:00 Medical Decision Making MDM Remarks Last 48 hours Impressions Cervical Spine MRI 02/08/17 1412 Signed Impressions: Service Date/Time: Wednesday, February 08, 2017 18:01 - CONCLUSION: 1. At C5-6 there is posterior osteophytic ridging resulting in moderate canal stenosis and mild cord compression mild bilateral foraminal stenosis. 2. Less severe degenerative changes remainder of the cervical spine as above. Mild cord compression at C6-7. 3. No acute fracture or spondylolisthesis. No cord signal abnormality. Hector Mcfarland MD Neck Magnetic Resonance Angiography 02/08/17 1403 Signed Impressions: Service Date/Time: Wednesday, February 08, 2017 18:01 - CONCLUSION: 1. Examination is within normal limits for age. Hector Mcfarland MD Head Magnetic Resonance Angiography 02/08/17 1403 Signed Impressions: Service Date/Time: Wednesday, February 08, 2017 18:01 - CONCLUSION: 1. Exam within normal limits for age. Hector Mcfarland MD Brain MRI 02/08/17 1403 Signed Impressions: Service Date/Time: Wednesday, February 08, 2017 18:01 - CONCLUSION: 1. Probable remote lacunar infarct right basal ganglia. No acute findings. Hector Mcfarland MD Cervical Spine CT 02/08/17 1006 Signed Impressions: Service Date/Time: Wednesday, February 08, 2017 10:38 - CONCLUSION: 1. No fracture or dislocation. 2. Diffuse severe degenerative changes as detailed above. 3. Carotid artery atherosclerotic calcifications. Orlin Crow Jr., MD Head CT 02/08/17 1004 Signed Impressions: Service Date/Time: Wednesday, February 08, 2017 10:38 - CONCLUSION: Age-indeterminate bilateral lacunar infarcts. Mitchell Bryson MD Chest X-Ray 02/08/17 1004 Signed Impressions: Service Date/Time: Wednesday, February 08, 2017 10:22 - CONCLUSION: No acute disease. Clint Rodriguez MD FACR Plan Plan Remarks Caprini VTE Risk Assessment Caprini VTE Risk Assessment Caprini VTE Risk Assessment: Mod/High Risk (score >= 2) Caprini Risk Assessment Model Point Value = 1 Point Value = 2 Point Value = 3 Point Value = 5 Age 41-60 Minor surgery BMI > 25 kg/m2 Swollen legs Varicose veins or History of unexplained or recurrent spontaneous Oral contraceptives or hormone replacement Sepsis (< 1 month) Serious lung disease, including pneumonia (< 1 month) Abnormal pulmonary function Acute myocardial infarction Congestive heart failure (< 1 month) History of inflammatory bowel disease Medical patient at bed rest Age 61-74 Arthroscopic surgery Major open surgery (> 45 min) Laparoscopic surgery (> 45 min) Malignancy Confined to bed (> 72 hours) Immobilizing plaster cast Central venous access Age >= 75 History of VTE Family history of VTE Factor V Leiden Prothrombin [id number] Lupus anticoagulant Anticardiolipin antibodies Elevated serum homocysteine Heparin-induced thrombocytopenia Other congenital or acquired thrombophilia Stroke (< 1 month) Elective arthroplasty Hip, pelvis, or leg fracture Acute spinal cord injury (< 1 month) Prophylaxis Regimen Total Risk Factor Score Risk Level Prophylaxis Regimen 0-1 Low Early ambulation 2 Moderate Order ONE of the following: *Sequential Compression Device (SCD) *Heparin 5000 units SQ BID 3-4 Higher Order ONE of the following medications: *Heparin 5000 units SQ TID *Enoxaparin/Lovenox 40 mg SQ daily (WT < 150 kg, CrCl > 30 mL/min) *Enoxaparin/Lovenox 30 mg SQ daily (WT < 150 kg, CrCl > 10-29 mL/min) *Enoxaparin/Lovenox 30 mg SQ BID (WT < 150 kg, CrCl > 30 mL/min) AND/OR *Sequential Compression Device (SCD) 5 or more Highest Order ONE of the following medications: *Heparin 5000 units SQ TID (Preferred with Epidurals) *Enoxaparin/Lovenox 40 mg SQ daily (WT < 150 kg, CrCl > 30 mL/min) *Enoxaparin/Lovenox 30 mg SQ daily (WT < 150 kg, CrCl > 10-29 mL/min) *Enoxaparin/Lovenox 30 mg SQ BID (WT < 150 kg, CrCl > 30 mL/min) AND *Sequential Compression Device (SCD) Attending Statement neuro continue checks in a serial fashion. I again discussed with him his radiological findings of cervical spinal stenosis and discussed with him the alternatives of treatment, including conservative treatment with physical therapy and anti-inflammatories versus a surgical decompression as a last resort. The patient requests to try conservative treatment with physical therapy and occupational therapy. He does not have any clinical evidence of cervical myelopathy. I would be happy to follow him up as an outpatient. Syncopal Episode. Defer to medical team EEG consult PT Arterial Hypertension continue antihypertensives and follow BP GERD on Famotidine Parkinson's Disease to continue Dopa. defer to dr canales Hypothyroidism asked for Free T4 Pulmonary. aggressive pulmonary toilette, nasotracheal suction, and breathing treatments with nebulizers. Nutrition. Tolerating Oral diet Renal. monitor closely urine output, BUN and creatinine Endocrine. Monitor serial Acu checks and SSI as needed in detail ID monitor for signs of infection Jean lyles and SCD's for DVT prophylaxis Paul Croft MD Feb 10, 2017 11:48
--- NOTE | 2017-02-11 18:37 | HM ---
Date Performed: 02/10/2017 Time Performed: 11:24:00 HOOKUP DATE: 02/10/17 11:24:00 AM Sun ANALYSIS START TIME: 02/10/2017 11:29:00 AM ANALYSIS END TIME: 02/11/2017 11:33:00 AM PATIENT AGE: 72 PATIENT HEIGHT PATIENT WEIGHT DRUG LIST PATIENT DIAGNOSIS: syncope TEST NARRATIVE: The patient's average heart rate was 91 BPM. Heart rates greater than 120 B PM were noted 4% of the time. No episodes of bradycardia were noted. No pauses exceeding 2.0 sec onds were noted. 2880 ventricular ectopics, which represented 2% of the total beat count, were no allyn. The highest ventricular ectopic frequency occurred from 06:00 PM to 07:00 PM Sun. During this time 698 VE(s) occurred. Ventricular ectopics were observed as 2526 isolated beat(s), as 159 couplet (s) and as 12 run(s). Some of the ventricular beats occurred in bigeminal cycles. 2 supraventric ular ectopics, which represented < 1% of the total beat count, were noted. The highest supraventricu lar ectopic frequency occurred from 09:00 PM to 10:00 PM Sun. During this time 1 SVE(s) occurred. No episodes of ST depression (defined as -1.0 mm or more) were noted in channel 1. No episodes of ST depression (defined as -1.0 mm or more) were noted in channel 2. No episodes of ST depression (de fined as -1.0 mm or more) were noted in channel 3. NO SYMPTOMS REPORTED BY PATIENT TEST INTERPRETATION: Patient was monitored for 24 hours. Minimum heart rate 71, maximum heart ra te 135, average heart rate 91. There were two PACs over a 24 hour period and 2500 PVCs. Underlying rh ythm was normal sinus. There were occasional runs of 3-beats of nonsustained ventricular tachycardia noted. Conclusion No atrial fibrillation, underlying rhythm is normal sinus. PVCs as noted above. Co uplet PVCs which are frequent and short runs of 3-beat nonsustained tachycardia. Signed by : Lg Kumar
== END 2017-02-10 12:22 | disposition home or self-care (01) ==
LOC: NEPC 09:47 → NEDA 15:13 → NEPHCDU 16:28
PROVIDERS: ADMIT Hospitalist; ATTEND Hospitalist
DX: R55 Syncope and collapse (principal); K21.9 Gastro-esophageal reflux disease without esophagitis; G20 Parkinson's disease; R51 Headache; E03.9 Hypothyroidism, unspecified; R41.82 Altered mental status, unspecified; I10 Essential (primary) hypertension; I49.3 Ventricular premature depolarization; G93.40 Encephalopathy, unspecified; I49.9 Cardiac arrhythmia, unspecified; M47.812 Spondylosis without myelopathy or radiculopathy, cervical region; H91.90 Unspecified hearing loss, unspecified ear; M19.90 Unspecified osteoarthritis, unspecified site; Z79.82 Long term (current) use of aspirin; Z79.899 Other long term (current) drug therapy; Z96.652 Presence of left artificial knee joint
CPT/HCPCS: 70450; 70544; 70548; 70551; 71010; 72125; 72141; 80048; 80053; 80061; 81001; 82550; 82607; 82948; 84439; 84443; 84484; 85025; 85610; 85652; 85730; 92610; 93005; 93225; 93226; 93306; 95819; 96360; 96361; 96372; 97162; 97166; 99285; A9579; G0378; G8987; G8988; G8989; G8996; G8997; G8998; J1650; J7030

== ENCOUNTER 2017-03-13 09:50 | Emergency (ER) | payer OTHER ==
[~2017-03-13 09:50] MED LIST changes: -AMLO5TAB22 PO; +ASPI81TA81 PO; -ASPI81TA82 PO; +CARB25TA9 PO; +COZA50TA PO; -CYCL-36 PO; -DIAZ5 PO; -DICL50 PO; -LOSA100T PO; -METO25 PO; -OXYC15TA PO; -PRED10PA PO
[2017-03-13 09:56] VITALS: BP 146/84; PULSE 70; RESP 17; TEMP 97.8; O2SAT 100
[2017-03-13 10:23] LABS: AUTOMATED NEUTROPHIL # 8.3 TH/MM3 (1.8-7.7); BASOPHIL # 0.1 TH/MM3 (0-0.2); BASOPHIL % 0.7 % (0.0-2.0); EOSINOPHIL # 0.1 TH/MM3 (0-0.4); EOSINOPHIL % 0.8 % (0.0-4.0); HEMATOCRIT 39.5 % (39.0-51.0); HEMOGLOBIN 13.4 GM/DL (13.0-17.0); LYMPH % 13.4 % (9.0-44.0); LYMPHOCYTE # 1.5 TH/MM3 (1.0-4.8); MEAN CELL VOLUME 92.4 FL (80.0-100.0); MEAN CORPUSCULAR HEMOGLOBIN 31.3 PG (27.0-34.0); MEAN CORPUSCULAR HGB CONC 33.9 % (32.0-36.0); MEAN PLATELET VOLUME 8.8 FL (7.0-11.0); MONO % 9.2 % (0.0-8.0); NEUT % 75.9 % (16.0-70.0); PLATELET COUNT 203 TH/MM3 (150-450); RED BLOOD COUNT 4.28 MIL/MM3 (4.50-5.90); RED CELL DISTRIBUTION WIDTH 13.8 % (11.6-17.2); WHITE BLOOD COUNT 10.9 TH/MM3 (4.0-11.0)
--- NOTE | 2017-03-13 10:25 | PD ---
HPI Chief Complaint: Seizure Time Seen by Provider: 09:57 Travel History International Travel<30 days: No Contact w/Intl Traveler<30days: No Traveled to known affect area: No History of Present Illness HPI This is a 72-year-old male who has a history of Parkinson's disease who presents to the emergency department having had a witnessed seizure. His and his son saw him have generalized convulsions that lasted for several minutes and then subsided, constant, severe. He lost his bladder at that time. He was sleepy following the episode. Currently he feels back to normal. He doesn't remember the episode. Earlier in February he was admitted in the setting of an episode of syncope that may have been a seizure. He has followed since with his primary care doctor and [employer] supervisor but hasn't seen his neurologist Dr. Gill yet. PFSH Past Medical History Hx Anticoagulant Therapy: Yes Arthritis: Yes Asthma: No Blood Disorders: No Anxiety: No Depression: No Heart Rhythm Problems: No Cancer: No Cardiac Catheterization: No Cardiovascular Problems: Yes (HTN) High Cholesterol: No Chemotherapy: No Chest Pain: No Congestive Heart Failure: No COPD: No Diabetes: No Diminished Hearing: Yes (HEARING AIDS) Endocrine: No Gastrointestinal Disorders: Yes GERD: Yes Genitourinary: No Hepatitis: No Hiatal Hernia: Yes Hypertension: Yes Musculoskeletal: Yes Parkinson's Disease: Yes Psychiatric: No Reproductive: No Respiratory: No Immunizations Current: No Radiation Therapy: No Sleep Apnea: No Thyroid Disease: No PNEUMOCCOCAL Vaccine (Year): 1 Past Surgical History Abdominal Surgery: Yes AICD: No Appendectomy: Yes Coronary Artery Bypass Graft: No Joint Replacement: Yes (LEFT KNEE) Pacemaker: No Other Surgery: Yes (LT KNEE REPLACEMENT, DEVIATED SEPTUM) Social History Alcohol Use: Yes Tobacco Use: No Substance Use: No Allergies-Medications (Allergen,Severity, Reaction): Coded Allergies: codeine (Unverified Allergy, Severe, HALLUCINATIONS, 02/08/17) zolpidem (Unverified Adverse Reaction, Mild, sleep walking, 02/08/17) Reported Meds & Prescriptions Reported Meds & Active Scripts Active Cozaar (Losartan Potassium) 50 Mg Tab 50 Mg PO DAILY Reported Aspir-81 (Aspirin) 81 Mg Tabdr 81 Mg PO DAILY Carbidopa-Levodopa 25-100 Mg Tab 2 Tab PO Q4HR Review of Systems Except as stated in HPI: all other systems reviewed are Neg Physical Exam Narrative GENERAL:Well appearing, no acute distress SKIN: Focused skin assessment warm and dry. HEAD: Atraumatic. Normocephalic. EYES: Pupils equal and round. No injection or drainage. ENT: Moist mucous membranes NECK: Trachea midline. CARDIOVASCULAR: Regular rate and rhythm. No murmur appreciated. RESPIRATORY: Clear to auscultation. Breath sounds equal bilaterally. GASTROINTESTINAL: Abdomen soft, non-tender, nondistended. MUSCULOSKELETAL: No obvious deformities. NEUROLOGICAL: Awake and alert. No obvious cranial nerve deficits. Moving all extremities. PSYCHIATRIC: Appropriate mood and affect; insight and judgment normal. Data Data Last Documented VS Vital Signs Date Time Temp Pulse Resp B/P (MAP) Pulse Ox O2 Delivery O2 Flow Rate FiO2 03/13/17 10:17 100 Room Air 03/13/17 09:56 97.8 70 17 146/84 (104) Orders Orders Complete Blood Count With Diff (03/13/17 10:08) Comprehensive Metabolic Panel (03/13/17 10:08) ^ Insert Iv (03/13/17 10:08) Levetiracetam Inj (Keppra Inj) (03/13/17 11:15) Labs Laboratory Tests Test 03/13/17 10:00 White Blood Count 10.9 TH/MM3 Red Blood Count 4.28 MIL/MM3 Hemoglobin 13.4 GM/DL Hematocrit 39.5 % Mean Corpuscular Volume 92.4 FL Mean Corpuscular Hemoglobin 31.3 PG Mean Corpuscular Hemoglobin Concent 33.9 % Red Cell Distribution Width 13.8 % Platelet Count 203 TH/MM3 Mean Platelet Volume 8.8 FL Neutrophils (%) (Auto) 75.9 % Lymphocytes (%) (Auto) 13.4 % Monocytes (%) (Auto) 9.2 % Eosinophils (%) (Auto) 0.8 % Basophils (%) (Auto) 0.7 % Neutrophils # (Auto) 8.3 TH/MM3 Lymphocytes # (Auto) 1.5 TH/MM3 Monocytes # (Auto) 1.0 TH/MM3 Eosinophils # (Auto) 0.1 TH/MM3 Basophils # (Auto) 0.1 TH/MM3 CBC Comment DIFF FINAL Differential Comment Blood Urea Nitrogen 22 MG/DL Creatinine 1.22 MG/DL Random Glucose 118 MG/DL Total Protein 7.4 GM/DL Albumin 3.6 GM/DL Calcium Level 9.1 MG/DL Alkaline Phosphatase 85 U/L Aspartate Amino Transf (AST/SGOT) 15 U/L Alanine Aminotransferase (ALT/SGPT) 7 U/L Total Bilirubin 0.6 MG/DL Sodium Level 137 MEQ/L Potassium Level 4.1 MEQ/L Chloride Level 105 MEQ/L Carbon Dioxide Level 26.8 MEQ/L Anion Gap 5 MEQ/L Estimat Glomerular Filtration Rate 58 ML/MIN MDM Medical Decision Making Medical Screen Exam Complete: Yes Emergency Medical Condition: Yes Interpretation(s) Afebrile, no tachycardia, mild hypertension No leukocytosis Electrolytes are reassuring Differential Diagnosis Seizure, syncope, electrolyte abnormality, infection Narrative Course This is a 72-year-old male who presents to the emergency department having had a witnessed seizure. He had an episode of urinary incontinence and was witnessed to be shaking by his . This is the second similar episode and a 2 month.. He was recently admitted and had an EEG and an MRI which were reassuring. Patient here was placed on a monitor and an IV was established. Labs were obtained which were reassuring. He was bolused with Keppra. I tried to call Dr. Butler but he is in a procedure. I think the patient can safely be discharged but should be initiated on Keppra and should follow-up with his neurologist. Diagnosis Primary Impression: Seizure Patient Instructions: General Instructions Additional Instructions: If you develop recurrent seizures, headache, numbness, weakness, difficulty walking or difficulty talking return to the emergency room. Follow-up with your neurologist as soon as possible. Do not drive until you speak with their neurologist. Med/Other Pt SpecificInfo: Prescription(s) given Scripts Levetiracetam (Keppra) 500 Mg Tab 500 MG PO BID for Control Seizures, #60 TAB 0 Refills Prov: Leighann Avina MD 03/13/17 Disposition: 01 DISCHARGE HOME Condition: Stable Leighann Avina MD Mar 13, 2017 10:25
[2017-03-13 10:43] LABS: ALBUMIN 3.6 GM/DL (3.4-5.0); ALT (GPT) 7 U/L (12-78); AST (GOT) 15 U/L (15-37); BICARBONATE 26.8 MEQ/L (21.0-32.0); BLOOD UREA NITROGEN 22 MG/DL (7-18); CALCIUM 9.1 MG/DL (8.5-10.1); CHLORIDE 105 MEQ/L (98-107); CREATININE 1.22 MG/DL (0.60-1.30); GLOMERULAR FILTRATION RATE 58 ML/MIN (>89); GLUCOSE,RANDOM 118 MG/DL (74-106); SODIUM (NA) 137 MEQ/L (136-145)
[2017-03-13 10:45] LABS: ALKALINE PHOSPHATASE 85 U/L (45-117); TOTAL BILIRUBIN ADULT 0.6 MG/DL (0.2-1.0); TOTAL PROTEIN 7.4 GM/DL (6.4-8.2)
[2017-03-13] MEDS ORDERED: levETIRAcetam INJ 100 ML IV ONE (11:15)
[2017-03-13] MEDS ORDERED: LEVE500 PO (12:01)
[2017-03-13 12:33] VITALS: BP 134/77
--- NOTE | 2017-03-16 00:11 | EKG ---
Date Performed: 03/13/2017 Time Performed: 10:01:44 PTAGE: 72 years EKG: Sinus rhythm NORMAL ECG NO PREVIOUS TRACING DOCTOR: Harjinder Parker Interpretating Date/Time 03/16/2017 00:09:47
== END 2017-03-13 12:39 | disposition home or self-care (01) ==
LOC: NEPE 09:50
DX: R56.9 Unspecified convulsions (principal); G20 Parkinson's disease; I10 Essential (primary) hypertension; K21.9 Gastro-esophageal reflux disease without esophagitis
CPT/HCPCS: 80053; 85025; 93005; 96374; 99284; J1953